=== PATIENT | female | born 1970 | race Caucasian/White ===

== ENCOUNTER 2017-07-26 13:55 | Emergency (ER) | payer OTHER, SELFPAY | END 2017-07-26 16:37 | disposition home or self-care (01) | PROVIDERS: Emergency Provider Emergency Medicine; Visit Provider Emergency Medicine | DX: F10.10 Alcohol abuse, uncomplicated (principal) | CPT/HCPCS: 80053; 80320; 85025; 85610; 85730; 99058; 99283 ==

== ENCOUNTER → 2018-05-22 15:51 | Outpatient (CLI) | payer SELFPAY ==
[2018-05-22 17:23] LABS: Add Manual Diff / Slide Review NO; Basophils Absolute Auto 100 /uL (0-100); Basophils Percent Auto 0.8 % (0-2); Eosinophils Absolute Auto 100 /uL (0-450); Eosinophils Percent Auto 1.6 % (2-4); Hematocrit 40.6 % (36-46); Hemoglobin 14.3 g/dL (12.0-16.0); Lymphocytes Absolute Auto 1800 /uL (1100-4500); Lymphocytes Percent Auto 23.8 % (25-40); Mean Corpuscular HGB Conc 35.2 % (30-36); Mean Corpuscular Hemoglobin 36.3 PG (26-34); Mean Corpuscular Volume 103.2 fL (80-100); Monocytes Absolute Auto 1200 /uL (0-900); Monocytes Percent Auto 16.8 % (3-14); Neutrophils Absolute Auto 4200 /uL (1500-7000); Platelet Count 167 X10^3/uL (150-400); Red Blood Cell Count 3.94 X10^6/uL (4.0-5.2); Red Cell Distribution Width 15.5 % (11.6-14.8); White Blood Cell Count 7.4 X10^3/uL (4.5-11.0)
[2018-05-22 17:57] LABS: Urine Amphetamines Negative (Negative); Urine Barbiturates Negative (Negative); Urine Benzodiazepines Negative (Negative); Urine Cocaine Negative (Negative); Urine MDMA Negative (Negative); Urine Methadone Negative (Negative); Urine Methamphetamines Negative (Negative); Urine Morphine/Opi cutoff 2000 Negative (Negative); Urine Oxycodone Negative (Negative); Urine Phencyclidine Negative (Negative); Urine Tetrahydrocannabinol Negative (Negative); Urine Tricyclic Antidepressant Negative (Negative)
[2018-05-22 18:09] LABS: Alanine Aminotransferase 89 IU/L (9-52); Albumin 4.6 g/dL (3.5-5.0); Albumin Globulin Ratio 1.5 (1.0-2.8); Alkaline Phosphatase 63 U/L (38-126); Aspartate Aminotransferase 53 IU/L (14-36); BUN Creatinine Ratio 14.3 (6-22); Bilirubin Total 0.7 mg/dL (0.2-1.3); Blood Urea Nitrogen 10 mg/dL (7-17); Calcium 9.9 mg/dL (8.4-10.2); Carbon Dioxide 21 mmol/L (22-32); Chloride 101 mmol/L (98-107); Estimated Glomerular Filt Rate > 60.0 mL/min (>60); Globulin 3.1 g/dL (1.7-4.1); Glucose 82 mg/dL (70-100); HEMOLYSIS < 15 (0-50); Potassium 4.1 mmol/L (3.4-5.1); Sodium 136 mmol/L (137-145); Total Protein 7.7 g/dL (6.3-8.2)
[2018-05-22 18:38] LABS: Thyroid Stimulating Hormone 1.06 uIU/mL (0.47-4.68)
== END ==
PROVIDERS: Visit Provider Psychiatry & Neurology Psychiatry
DX: F33.9 Major depressive disorder, recurrent, unspecified (principal); F43.10 Post-traumatic stress disorder, unspecified; F12.10 Cannabis abuse, uncomplicated; F10.20 Alcohol dependence, uncomplicated
CPT/HCPCS: 36415; 80053; 80305; 84443; 85025

== ENCOUNTER 2018-06-12 21:07 | Emergency (ER) | payer OTHER, MEDICAID, SELFPAY ==
[2018-06-12] VITALS (12 sets, daily range): BP systolic 73–131; BP diastolic 55–116; PULSE 67–86; RESP 12–20; TEMP 36.7; O2SAT 94–99; BMI 21.7
--- NOTE | 2018-06-12 21:13 | ED.GENADULT ---
HPI - General Adult General Chief complaint: Psychiatric Symptoms Stated complaint: Suicide Attempt Time Seen by Provider: 06/12/18 21:11 Source: patient and EMS Mode of arrival: EMS Limitations: no limitations History of Present Illness HPI narrative: patient is a 48-year-old female brought in by EMS. They were called by the family after the patient intentionally took her medication and an attempt to kill herself. Approximately 40 min prior to arrival the patient took approximately 30 pills of 0.1 mg clonidine, 20 pills of 1 mg or as a Dara, 30 pills of 25 mg Chlordiazepoxide, 51 1 mg Prazosin. she also admitted to drinking alcohol. The patient stated that she has never tried to kill herself in the past. She has done some cutting in the past but none of that now. She blames depression and other issues on why she did it. She is here in the hospital with her . Related Data Previous Rx's Medication Instructions Recorded fluconazole [Diflucan] 150 mg PO QDAY #1 tab 01/13/17 chlordiazepoxide HCl 25 mg PO SEE INSTRUCTIONS #30 cap 07/26/17 Allergies Allergy/AdvReac Type Severity Reaction Status Date / Time aspirin [ASPIRIN] AdvReac Severe RING IN Verified 06/12/18 21:52 EARS. ASPIRIN Allergy Severe RINGING IN Uncoded 06/12/18 21:52 EARS & TINGLING ALL OVER BODY Review of Systems Constitutional Reports fatigue and Denies headache(s) ENT Ears, Nose, Mouth, and Throat: Denies headache(s) and Reports disequilibrium Cardiovascular Denies chest pain and Denies dyspnea Respiratory Denies dyspnea Gastrointestinal Gastrointestinal: Denies abdominal pain, Denies nausea and Denies vomiting Genitourinary Denies dysuria Musculoskeletal Denies myalgias and Denies arthralgias Integumentary/Breasts Denies rash Neurologic Reports behavioral changes, Reports confusion, Denies headache(s) and Reports disequilibrium Psychiatric Reports behavioral changes, Reports confusion, Reports depression, Reports hopelessness, Denies homicidal ideation and Reports suicidal ideation Endocrine Reports fatigue Hematologic/Lymphatic Denies easy bleeding and Denies easy bruising PFSH Medical History Alcohol abuse (Acute) Anxiety (Acute) Social History Smoking Status: Current every day smoker Social History Smoking Status: Current every day smoker Exam Initial Vital Signs Initial Vital Signs: Vital Signs Temperature 98.1 F 06/12/18 21:10 Pulse Rate 86 06/12/18 21:10 Respiratory Rate 16 06/12/18 21:10 Blood Pressure 131/116 H 06/12/18 21:10 Pulse Oximetry 97 06/12/18 21:10 Const General: cooperative, well developed, well groomed and No acute distress Orientation: alert, awake and oriented x3 HENMT Head: normal to inspection and normocephalic Resp Effort & Inspection: normal respiratory effort Auscultation: clear to auscultation bilaterally Cardio Rate: regular rate Rhythm: regular rhythm Pulses: radial pulses present GI Inspection: non-distended Palpation: soft Skin Lesions: no lesions Rashes: no rashes Neuro General: alert, awake and oriented x3 Cognition: normal cognition Speech: other ( slurred speech) Extrem General: normal to inspection and capillary refill normal Psych Appearance: grossly normal and well kempt Course Orders Ordered: ED Orders 06/12/18 22:35 Test Urine Stat Urinalysis and Microscopic Stat Urine Drug Screen, Rapid Stat 06/13/18 05:55 Consult to Alterations Sewer Stat 06/13/18 06:20 Ethanol (ETOH) Stat Sodium Chloride (Normal Saline 0.9%) 1,000 mls @ 150 mls/hr IV CONT ANASTASIA Last Infusion: 06/13/18 04:25 Dose: 0 mls/hr Admin: 06/12/18 23:14 Dose: 150 mls/hr Discontinued Medications Sodium Chloride (Normal Saline 0.9%) 1,000 mls @ 1,000 mls/hr IV BOLUS ONE Stop: 06/12/18 22:18 Last Infusion: 06/12/18 22:51 Dose: 0 mls/hr Admin: 06/12/18 21:53 Dose: 1,000 mls/hr Sodium Chloride (Normal Saline 0.9%) 1,000 mls @ 1,000 mls/hr IV BOLUS ONE Stop: 06/12/18 23:37 Last Infusion: 06/12/18 23:13 Dose: 0 mls/hr Admin: 06/12/18 22:42 Dose: 1,000 mls/hr Sodium Chloride (Normal Saline 0.9%) 1,000 mls @ 500 mls/hr IV BOLUS ONE Stop: 06/13/18 06:04 Last Infusion: 06/13/18 06:40 Dose: 0 mls/hr Admin: 06/13/18 04:18 Dose: 500 mls/hr Vital Signs - 8 hr 06/12/18 23:30 06/12/18 23:45 06/13/18 00:00 Pulse Rate 72 67 66 Respiratory Rate 14 15 15 Blood Pressure [Left Arm] 85/62 L 84/62 L 82/66 L Pulse Oximetry 95 96 95 06/13/18 00:15 06/13/18 00:32 06/13/18 00:45 Pulse Rate 67 66 68 Respiratory Rate 14 15 14 Blood Pressure [Left Arm] 85/64 L 86/65 L 81/62 L Pulse Oximetry 95 95 94 06/13/18 01:00 06/13/18 01:15 06/13/18 01:30 Pulse Rate 68 66 74 Respiratory Rate 15 15 15 Blood Pressure [Left Arm] 87/61 L 86/63 L 83/63 L Pulse Oximetry 95 95 98 06/13/18 01:48 06/13/18 02:02 06/13/18 02:30 Pulse Rate 69 75 58 L Respiratory Rate 14 18 14 Blood Pressure [Left Arm] 89/60 L 84/63 L 92/66 Pulse Oximetry 97 97 97 06/13/18 03:15 06/13/18 03:30 06/13/18 04:00 Pulse Rate 58 L 59 L 69 Respiratory Rate 15 16 16 Blood Pressure [Left Arm] 97/73 93/70 76/61 L Pulse Oximetry 95 96 96 06/13/18 04:30 06/13/18 05:00 06/13/18 06:30 Pulse Rate 58 L 73 55 L Respiratory Rate 13 16 14 Blood Pressure [Left Arm] 89/68 L 99/66 85/58 L Pulse Oximetry 95 97 93 06/13/18 06:45 06/13/18 07:01 Pulse Rate 54 L 55 L Respiratory Rate 15 15 Blood Pressure [Left Arm] 95/56 L 89/64 L Pulse Oximetry 96 95 Medical Decision Making Lab Data Lab results reviewed: Yes I reviewed the patient's lab results. Result diagrams: 06/12/18 21:40 06/12/18 21:40 Lab Results 06/12/18 06/12/18 06/12/18 Range/Units 21:40 21:40 21:40 WBC 5.7 (4.5-11.0) X10^3/uL RBC 3.75 L (4.0-5.2) X10^6/uL Hgb 13.2 (12.0-16.0) g/dL Hct 37.7 (36-46) % MCV 100.4 H (80-100) fL MCH 35.2 H (26-34) PG MCHC 35.1 (30-36) % RDW 14.4 (11.6-14.8) % Plt Count 158 (150-400) X10^3/uL Neut % (Auto) 63.2 (50-75) % Lymph % (Auto) 28.3 (25-40) % [place] % (Auto) 6.5 (3-14) % Eos % (Auto) 1.2 L (2-4) % Baso % (Auto) 0.8 (0-2) % Neut # (Auto) 3600 (7877-8426) /uL Lymph # (Auto) 1600 (4490-7519) /uL [place] # (Auto) 400 (0-900) /uL Eos # (Auto) 100 (0-450) /uL Baso # (Auto) 0 (0-100) /uL Sodium 140 (137-145) mmol/L Potassium 3.6 (3.4-5.1) mmol/L Chloride 108 H (98-107) mmol/L Carbon Dioxide 19 L (22-32) mmol/L BUN 6 L (7-17) mg/dL Creatinine 0.60 (0.52-1.04) mg/dL Estimated GFR > 60.0 (>60) mL/min BUN/Creatinine Ratio 10.0 (6-22) Glucose 110 H (70-100) mg/dL Calcium 8.9 (8.4-10.2) mg/dL Total Bilirubin 0.1 L (0.2-1.3) mg/dL AST 19 (14-36) IU/L ALT 21 (9-52) IU/L Alkaline Phosphatase 42 (38-126) U/L Total Protein 7.1 (6.3-8.2) g/dL Albumin 4.2 (3.5-5.0) g/dL Globulin 2.9 (1.7-4.1) g/dL Albumin/Globulin Ratio 1.4 (1.0-2.8) Lipase 282 (23-300) U/L TSH 1.00 (0.47-4.68) uIU/mL Urine Color Urine Appearance Urine pH (4.5-8.0) Ur Specific [place] (1.000-1.035) Urine Protein (Negative) Urine Glucose (UA) (Negative) g/dL Urine Ketones (NEGATIVE) Urine Occult Blood (Negative) Urine Nitrate (Negative) Urine Bilirubin (NEGATIVE) Urine Urobilinogen (0.2) E.U./dL Ur Leukocyte Esterase (NEGATIVE) Urine RBC (0-5/HPF) Urine WBC (0-5/HPF) Urine Bacteria (None) Ur Culture Indicated? Urine Test (Negative) Salicylates < 1.0 (<20) mg/dL Urine Opiates Screen (Negative) Ur Oxycodone Screen (Negative) Urine Methadone Screen (Negative) Acetaminophen < 10 L (10-30) ug/mL Ur Barbiturates Screen (Negative) U Tricyclic Antidepress (Negative) Ur Phencyclidine Scrn (Negative) Ur Amphetamines Screen (Negative) U Methamphetamines Scrn (Negative) Ur MDMA Scrn (Ecstasy) (Negative) U Benzodiazepines Scrn (Negative) Urine Cocaine Screen (Negative) U Marijuana (THC) Screen (Negative) Ethyl Alcohol 167 mg/dL 06/12/18 06/12/18 06/12/18 Range/Units 22:35 22:35 22:35 WBC (4.5-11.0) X10^3/uL RBC (4.0-5.2) X10^6/uL Hgb (12.0-16.0) g/dL Hct (36-46) % MCV (80-100) fL MCH (26-34) PG MCHC (30-36) % RDW (11.6-14.8) % Plt Count (150-400) X10^3/uL Neut % (Auto) (50-75) % Lymph % (Auto) (25-40) % [place] % (Auto) (3-14) % Eos % (Auto) (2-4) % Baso % (Auto) (0-2) % Neut # (Auto) (5084-5673) /uL Lymph # (Auto) (2844-7090) /uL [place] # (Auto) (0-900) /uL Eos # (Auto) (0-450) /uL Baso # (Auto) (0-100) /uL Sodium (137-145) mmol/L Potassium (3.4-5.1) mmol/L Chloride (98-107) mmol/L Carbon Dioxide (22-32) mmol/L BUN (7-17) mg/dL Creatinine (0.52-1.04) mg/dL Estimated GFR (>60) mL/min BUN/Creatinine Ratio (6-22) Glucose (70-100) mg/dL Calcium (8.4-10.2) mg/dL Total Bilirubin (0.2-1.3) mg/dL AST (14-36) IU/L ALT (9-52) IU/L Alkaline Phosphatase (38-126) U/L Total Protein (6.3-8.2) g/dL Albumin (3.5-5.0) g/dL Globulin (1.7-4.1) g/dL Albumin/Globulin Ratio (1.0-2.8) Lipase (23-300) U/L TSH (0.47-4.68) uIU/mL Urine Color Yellow Urine Appearance Clear Urine pH 5.5 (4.5-8.0) Ur Specific [place] <=1.005 (1.000-1.035) Urine Protein Negative (Negative) Urine Glucose (UA) Negative (Negative) g/dL Urine Ketones Negative (NEGATIVE) Urine Occult Blood Trace-lysed (Negative) Urine Nitrate Negative (Negative) Urine Bilirubin Negative (NEGATIVE) Urine Urobilinogen 0.2 (0.2) E.U./dL Ur Leukocyte Esterase Negative (NEGATIVE) Urine RBC None seen (0-5/HPF) Urine WBC None seen (0-5/HPF) Urine Bacteria None seen (None) Ur Culture Indicated? Cult not indicated Urine Test Negative (Negative) Salicylates (<20) mg/dL Urine Opiates Screen Negative (Negative) Ur Oxycodone Screen Negative (Negative) Urine Methadone Screen Negative (Negative) Acetaminophen (10-30) ug/mL Ur Barbiturates Screen Negative (Negative) U Tricyclic Antidepress Negative (Negative) Ur Phencyclidine Scrn Negative (Negative) Ur Amphetamines Screen Negative (Negative) U Methamphetamines Scrn Negative (Negative) Ur MDMA Scrn (Ecstasy) Negative (Negative) U Benzodiazepines Scrn Positive H (Negative) Urine Cocaine Screen Negative (Negative) U Marijuana (THC) Screen Positive H (Negative) Ethyl Alcohol mg/dL 06/13/18 Range/Units 06:20 WBC (4.5-11.0) X10^3/uL RBC (4.0-5.2) X10^6/uL Hgb (12.0-16.0) g/dL Hct (36-46) % MCV (80-100) fL MCH (26-34) PG MCHC (30-36) % RDW (11.6-14.8) % Plt Count (150-400) X10^3/uL Neut % (Auto) (50-75) % Lymph % (Auto) (25-40) % [place] % (Auto) (3-14) % Eos % (Auto) (2-4) % Baso % (Auto) (0-2) % Neut # (Auto) (1214-2076) /uL Lymph # (Auto) (5033-5526) /uL [place] # (Auto) (0-900) /uL Eos # (Auto) (0-450) /uL Baso # (Auto) (0-100) /uL Sodium (137-145) mmol/L Potassium (3.4-5.1) mmol/L Chloride (98-107) mmol/L Carbon Dioxide (22-32) mmol/L BUN (7-17) mg/dL Creatinine (0.52-1.04) mg/dL Estimated GFR (>60) mL/min BUN/Creatinine Ratio (6-22) Glucose (70-100) mg/dL Calcium (8.4-10.2) mg/dL Total Bilirubin (0.2-1.3) mg/dL AST (14-36) IU/L ALT (9-52) IU/L Alkaline Phosphatase (38-126) U/L Total Protein (6.3-8.2) g/dL Albumin (3.5-5.0) g/dL Globulin (1.7-4.1) g/dL Albumin/Globulin Ratio (1.0-2.8) Lipase (23-300) U/L TSH (0.47-4.68) uIU/mL Urine Color Urine Appearance Urine pH (4.5-8.0) Ur Specific [place] (1.000-1.035) Urine Protein (Negative) Urine Glucose (UA) (Negative) g/dL Urine Ketones (NEGATIVE) Urine Occult Blood (Negative) Urine Nitrate (Negative) Urine Bilirubin (NEGATIVE) Urine Urobilinogen (0.2) E.U./dL Ur Leukocyte Esterase (NEGATIVE) Urine RBC (0-5/HPF) Urine WBC (0-5/HPF) Urine Bacteria (None) Ur Culture Indicated? Urine Test (Negative) Salicylates (<20) mg/dL Urine Opiates Screen (Negative) Ur Oxycodone Screen (Negative) Urine Methadone Screen (Negative) Acetaminophen (10-30) ug/mL Ur Barbiturates Screen (Negative) U Tricyclic Antidepress (Negative) Ur Phencyclidine Scrn (Negative) Ur Amphetamines Screen (Negative) U Methamphetamines Scrn (Negative) Ur MDMA Scrn (Ecstasy) (Negative) U Benzodiazepines Scrn (Negative) Urine Cocaine Screen (Negative) U Marijuana (THC) Screen (Negative) Ethyl Alcohol < 10 mg/dL MDM Narrative Medical decision making narrative: discussed the case with poison control upon arrival. They recommended the usual toxicologic workup. Their concern was for [employer] depression, respiratory depression, bradycardia, hypotension. they stated that the medications she took usually respond to fluid boluses and her treatment is supportive care. They stated that she could potentially need pressors if her blood pressure drops too low. They also recommended at least 8 hr of observation and potentially longer if her symptoms persist. Her alcohol level was elevated. Patient has been stable overnight. Care turned over to Dr. Jain at 0700. to follow up on repeat alcohol level and re-evaluation and disposition. Discharge Plan Departure Patient Disposition: Xfer Acute Care Hospital Prescriptions: No Action fluconazole [Diflucan] 150 MG tablet 150 mg PO QDAY Qty: 1 RF: 0 chlordiazepoxide HCl 25 MG capsule 25 mg PO SEE INSTRUCTIONS Qty: 30 RF: 0
[2018-06-12] MEDS: SODIUM CHLORIDE 0.9% 1,000 ML 1000 ML IV ×2 (21:53→22:42)
[2018-06-12 22:10] LABS: Add Manual Diff / Slide Review NO; Basophils Absolute Auto 0 /uL (0-100); Basophils Percent Auto 0.8 % (0-2); Eosinophils Absolute Auto 100 /uL (0-450); Eosinophils Percent Auto 1.2 % (2-4); Hematocrit 37.7 % (36-46); Hemoglobin 13.2 g/dL (12.0-16.0); Lymphocytes Absolute Auto 1600 /uL (1100-4500); Lymphocytes Percent Auto 28.3 % (25-40); Mean Corpuscular HGB Conc 35.1 % (30-36); Mean Corpuscular Hemoglobin 35.2 PG (26-34); Mean Corpuscular Volume 100.4 fL (80-100); Monocytes Absolute Auto 400 /uL (0-900); Monocytes Percent Auto 6.5 % (3-14); Neutrophils Absolute Auto 3600 /uL (1500-7000); Neutrophils Percent Auto 63.2 % (50-75); Platelet Count 158 X10^3/uL (150-400); Red Blood Cell Count 3.75 X10^6/uL (4.0-5.2); Red Cell Distribution Width 14.4 % (11.6-14.8); White Blood Cell Count 5.7 X10^3/uL (4.5-11.0)
[2018-06-12 22:11] LABS: Acetaminophen < 10 ug/mL (10-30); Alanine Aminotransferase 21 IU/L (9-52); Albumin 4.2 g/dL (3.5-5.0); Albumin Globulin Ratio 1.4 (1.0-2.8); Alkaline Phosphatase 42 U/L (38-126); Aspartate Aminotransferase 19 IU/L (14-36); Bilirubin Total 0.1 mg/dL (0.2-1.3); Blood Urea Nitrogen 6 mg/dL (7-17); Calcium 8.9 mg/dL (8.4-10.2); Carbon Dioxide 19 mmol/L (22-32); Chloride 108 mmol/L (98-107); Estimated Glomerular Filt Rate > 60.0 mL/min (>60); Ethanol (ETOH) 167 mg/dL; Globulin 2.9 g/dL (1.7-4.1); Glucose 110 mg/dL (70-100); HEMOLYSIS < 15 (0-50); Lipase 282 U/L (23-300); Potassium 3.6 mmol/L (3.4-5.1); Sodium 140 mmol/L (137-145); Total Protein 7.1 g/dL (6.3-8.2)
[2018-06-12 22:12] LABS: Salicylate < 1.0 mg/dL (<20)
[2018-06-12 22:48] LABS: Bacteria Urine None Seen; RBC Urine None Seen (0-5/HPF); WBC Urine None Seen (0-5/HPF)
[2018-06-12 22:50] LABS: Appearance Urine UA CLEAR; Bilirubin Urine UA NEGATIVE (NEGATIVE); Color Urine UA YELLOW; Glucose Urine UA NEGATIVE (Negative); Ketones Urine UA NEGATIVE (NEGATIVE); Leukocyte Esterase Urine UA NEGATIVE (NEGATIVE); Nitrite Urine UA NEGATIVE (Negative); Occult Blood Urine UA TRACE-LYSED (Negative); Protein Urine UA NEGATIVE (Negative); Specific Gravity Urine UA <=1.005 (1.000-1.035); Urobilinogen Urine UA 0.2 E.U./dL (0.2); pH Urine UA 5.5 (4.5-8.0)
[2018-06-12 22:57] LABS: Urine Amphetamines Negative (Negative); Urine Barbiturates Negative (Negative); Urine Cocaine Negative (Negative); Urine MDMA Negative (Negative); Urine Methamphetamines Negative (Negative); Urine Morphine/Opi cutoff 2000 Negative (Negative); Urine Phencyclidine Negative (Negative); Urine Tetrahydrocannabinol Positive (Negative)
[2018-06-12 22:58] LABS: Pregnancy Test Urine Negative (Negative); Urine Benzodiazepines Positive (Negative); Urine Methadone Negative (Negative); Urine Oxycodone Negative (Negative); Urine Tricyclic Antidepressant Negative (Negative)
[2018-06-12 23:00] LABS: Culture Indicated Urine Cult Not Indicated
[2018-06-12] MEDS: SODIUM CHLORIDE 0.9% 1,000 ML 150 ML IV (23:14)
--- NOTE | 2018-06-12 23:25 | PC.NURSE ---
pt has family and spouse at bedside
[2018-06-13] VITALS (28 sets, daily range): BP systolic 76–134; BP diastolic 56–78; PULSE 39–75; RESP 13–22; O2SAT 93–99
--- NOTE | 2018-06-13 00:27 | PC.NURSE ---
pt sleeping in bed, arouses easily when approached by staff
--- NOTE | 2018-06-13 01:12 | PC.NURSE ---
ED Psychiatric Symptoms assessment charted on 06/12/18 at 2310 was actually done by Johanny Prajapati RN. Charted under Danyelle Franco in error.
--- NOTE | 2018-06-13 02:06 | PC.NURSE ---
Patient place din Room 7 at this time as she is more stable and all unnecessary items are more able to be removed from this room. Family at bedside. Danyelle Galvan at bedside.
[2018-06-13] MEDS: SODIUM CHLORIDE 0.9% 1,000 ML 500 ML IV (04:18)
--- NOTE | 2018-06-13 06:23 | PC.NURSE ---
drawn by lab.
[2018-06-13 06:56] LABS: Ethanol (ETOH) < 10 mg/dL
--- NOTE | 2018-06-13 07:39 | PC.NURSE ---
Gave pt ice water and walked with her to the bathroom. Pt back in her room laying down in bed. Her is at her bedside.
--- NOTE | 2018-06-13 07:51 | PC.NURSE ---
Pt resting in on bed. is in room with pt.
--- NOTE | 2018-06-13 08:01 | PC.NURSE ---
Pt sitting up in bed talking with her in room.
--- NOTE | 2018-06-13 08:21 | PC.NURSE ---
called left message to HEMATOLOGY NURSE.
--- NOTE | 2018-06-13 08:22 | PC.NURSE ---
Pt sitting up in bed talking with .
--- NOTE | 2018-06-13 08:39 | PC.NURSE ---
Wheeled pt to bathroom. Pt back in her room with . Pt is not hungry and refused breakfast.
--- NOTE | 2018-06-13 08:48 | PC.NURSE ---
Pt sitting up in bed eating a banana. Pt's is in the room.
--- NOTE | 2018-06-13 09:00 | PC.NURSE ---
Pt resting in bed. is in room with her.
--- NOTE | 2018-06-13 09:09 | PC.NURSE ---
Report from Jen RN, pt resting with eyes closed returned to monitor and awaiting repeat EKG - RT aware. curtains to room 7 open red sign on door. patient on monitor and at BS
--- NOTE | 2018-06-13 09:19 | PC.NURSE ---
Pt laying line bed. in room.
--- NOTE | 2018-06-13 09:31 | PC.NURSE ---
Pt resting in bed. in room.
--- NOTE | 2018-06-13 09:49 | PC.NURSE ---
Wheeled pt to bathroom. Pt back in bed and her parents and in room.
--- NOTE | 2018-06-13 10:01 | PC.NURSE ---
pt laying in bed visiting with her parents.
--- NOTE | 2018-06-13 10:02 | PC.NURSE ---
0940 Pt. ambulates from bathroom. additional friends arrive to bedside. pt. remains calm and appropriate in behavior. is talking calmly with friends at present
--- NOTE | 2018-06-13 10:17 | PC.NURSE ---
pt resting on bed. Pt's parents an in room.
[2018-06-13] MEDS: MAG HYDROX/ALUM/SIMETH 30 ML UDC PO (10:29)
--- NOTE | 2018-06-13 10:33 | PC.NURSE ---
Pt relaxing in bed. Nurse in room with pt talking also pt's and parents in room.
--- NOTE | 2018-06-13 10:47 | PC.NURSE ---
pt upset because its taking too long. Pts nurse talked to pt and pt is back in bed relaxing.
--- NOTE | 2018-06-13 10:51 | PC.NURSE ---
JEANIE Paz arrives to BS now
--- NOTE | 2018-06-13 10:52 | PC.NURSE ---
1020 - patient increasingly frustrated because she wants to go home and/or outside to smoke and right now ED physician is refusing, awaiting JEANIE magdaleno. Pt. refuses nicotine patch offer
--- NOTE | 2018-06-13 11:01 | PC.NURSE ---
pt resting on bed talking with care management in the room.
--- NOTE | 2018-06-13 11:33 | PC.NURSE ---
pt relaxing in bed, family at bedside
--- NOTE | 2018-06-13 11:34 | PC.NURSE ---
pt laying in bed. Her parents and are in room with her.
--- NOTE | 2018-06-13 11:45 | PC.NURSE ---
Pt is resting on bed visiting with family in room.
--- NOTE | 2018-06-13 12:02 | PC.NURSE ---
Walked with pt to the restroom. Pt back in room laying down with family at bedside.
--- NOTE | 2018-06-13 12:09 | PC.NURSE ---
1150- SW finished with pt. resourses information provided for follow up. SW stressed importance of applying for [employer] [facility] and contacting [facility] team for further assistance. Pt. and family verbalized acceptance of care for pt. safety.
--- NOTE | 2018-06-13 12:17 | PC.NURSE ---
pt laying in bed. Family in room with pt.
--- NOTE | 2018-06-13 12:35 | PC.NURSE ---
Family in room with pt. Pt is laying on bed.
--- NOTE | 2018-06-13 12:48 | PC.NURSE ---
Pt sitting up in bed talking with family in room.
--- NOTE | 2018-06-13 13:02 | PC.NURSE ---
pt in bed relaxing, door closed and curtain open.
--- NOTE | 2018-06-13 13:08 | ED.PSYCH ---
HPI - Psych General Chief Complaint: Psychiatric Symptoms Stated Complaint: Suicide Attempt Time Seen by Provider: 06/12/18 21:11 Source: patient and EMS Mode of arrival: EMS Related Data Previous Rx's Medication Instructions Recorded fluconazole [Diflucan] 150 mg PO QDAY #1 tab 01/13/17 chlordiazepoxide HCl 25 mg PO SEE INSTRUCTIONS #30 cap 07/26/17 Allergies Allergy/AdvReac Type Severity Reaction Status Date / Time aspirin [ASPIRIN] AdvReac Severe RING IN Verified 06/12/18 21:52 EARS. ASPIRIN Allergy Severe RINGING IN Uncoded 06/12/18 21:52 EARS & TINGLING ALL OVER BODY Review of Systems Constitutional Denies headache(s) ENT Ears, Nose, Mouth, and Throat: Denies headache(s) and Reports disequilibrium Neurologic Reports behavioral changes, Reports confusion, Denies headache(s) and Reports disequilibrium Psychiatric Reports behavioral changes and Reports confusion PFSH Medical History Alcohol abuse (Acute) Anxiety (Acute) Social History Smoking Status: Current every day smoker Social History Smoking Status: Current every day smoker Exam Initial Vital Signs Initial Vital Signs: Vital Signs Temperature 98.1 F 06/12/18 21:10 Pulse Rate 86 06/12/18 21:10 Respiratory Rate 16 06/12/18 21:10 Blood Pressure 131/116 H 06/12/18 21:10 Pulse Oximetry 97 06/12/18 21:10 Course Orders Ordered: Discontinued Medications Al Hydrox/Mg Hydrox/Simethicone (Maalox Plus) 30 ml PO NOW ONE Stop: 06/13/18 09:25 Last Admin: 06/13/18 10:29 Dose: 30 ml Sodium Chloride (Normal Saline 0.9%) 1,000 mls @ 1,000 mls/hr IV BOLUS ONE Stop: 06/12/18 22:18 Last Infusion: 06/12/18 22:51 Dose: 0 mls/hr Admin: 06/12/18 21:53 Dose: 1,000 mls/hr Sodium Chloride (Normal Saline 0.9%) 1,000 mls @ 150 mls/hr IV CONT ANASTASIA Last Infusion: 06/13/18 04:25 Dose: 0 mls/hr Admin: 06/12/18 23:14 Dose: 150 mls/hr Sodium Chloride (Normal Saline 0.9%) 1,000 mls @ 1,000 mls/hr IV BOLUS ONE Stop: 06/12/18 23:37 Last Infusion: 06/12/18 23:13 Dose: 0 mls/hr Admin: 06/12/18 22:42 Dose: 1,000 mls/hr Sodium Chloride (Normal Saline 0.9%) 1,000 mls @ 500 mls/hr IV BOLUS ONE Stop: 06/13/18 06:04 Last Infusion: 06/13/18 06:40 Dose: 0 mls/hr Admin: 06/13/18 04:18 Dose: 500 mls/hr Vital Signs - 8 hr 06/13/18 13:06 06/13/18 13:08 06/13/18 13:30 Pulse Rate 39 L 40 L 48 L Respiratory Rate 17 17 13 Blood Pressure [Left Arm] 110/76 127/69 106/71 Pulse Oximetry 97 99 99 MDM - Psych Lab Data Attestation: I reviewed the patient's lab results. Result diagrams: 06/12/18 21:40 06/12/18 21:40 Lab Results 06/12/18 06/12/18 06/12/18 Range/Units 21:40 21:40 21:40 WBC 5.7 (4.5-11.0) X10^3/uL RBC 3.75 L (4.0-5.2) X10^6/uL Hgb 13.2 (12.0-16.0) g/dL Hct 37.7 (36-46) % MCV 100.4 H (80-100) fL MCH 35.2 H (26-34) PG MCHC 35.1 (30-36) % RDW 14.4 (11.6-14.8) % Plt Count 158 (150-400) X10^3/uL Neut % (Auto) 63.2 (50-75) % Lymph % (Auto) 28.3 (25-40) % [place] % (Auto) 6.5 (3-14) % Eos % (Auto) 1.2 L (2-4) % Baso % (Auto) 0.8 (0-2) % Neut # (Auto) 3600 (2854-9026) /uL Lymph # (Auto) 1600 (7565-1256) /uL [place] # (Auto) 400 (0-900) /uL Eos # (Auto) 100 (0-450) /uL Baso # (Auto) 0 (0-100) /uL Sodium 140 (137-145) mmol/L Potassium 3.6 (3.4-5.1) mmol/L Chloride 108 H (98-107) mmol/L Carbon Dioxide 19 L (22-32) mmol/L BUN 6 L (7-17) mg/dL Creatinine 0.60 (0.52-1.04) mg/dL Estimated GFR > 60.0 (>60) mL/min BUN/Creatinine Ratio 10.0 (6-22) Glucose 110 H (70-100) mg/dL Calcium 8.9 (8.4-10.2) mg/dL Total Bilirubin 0.1 L (0.2-1.3) mg/dL AST 19 (14-36) IU/L ALT 21 (9-52) IU/L Alkaline Phosphatase 42 (38-126) U/L Total Protein 7.1 (6.3-8.2) g/dL Albumin 4.2 (3.5-5.0) g/dL Globulin 2.9 (1.7-4.1) g/dL Albumin/Globulin Ratio 1.4 (1.0-2.8) Lipase 282 (23-300) U/L TSH 1.00 (0.47-4.68) uIU/mL Urine Color Urine Appearance Urine pH (4.5-8.0) Ur Specific [place] (1.000-1.035) Urine Protein (Negative) Urine Glucose (UA) (Negative) g/dL Urine Ketones (NEGATIVE) Urine Occult Blood (Negative) Urine Nitrate (Negative) Urine Bilirubin (NEGATIVE) Urine Urobilinogen (0.2) E.U./dL Ur Leukocyte Esterase (NEGATIVE) Urine RBC (0-5/HPF) Urine WBC (0-5/HPF) Urine Bacteria (None) Ur Culture Indicated? Urine Test (Negative) Salicylates < 1.0 (<20) mg/dL Urine Opiates Screen (Negative) Ur Oxycodone Screen (Negative) Urine Methadone Screen (Negative) Acetaminophen < 10 L (10-30) ug/mL Ur Barbiturates Screen (Negative) U Tricyclic Antidepress (Negative) Ur Phencyclidine Scrn (Negative) Ur Amphetamines Screen (Negative) U Methamphetamines Scrn (Negative) Ur MDMA Scrn (Ecstasy) (Negative) U Benzodiazepines Scrn (Negative) Urine Cocaine Screen (Negative) U Marijuana (THC) Screen (Negative) Ethyl Alcohol 167 mg/dL 06/12/18 06/12/18 06/12/18 Range/Units 22:35 22:35 22:35 WBC (4.5-11.0) X10^3/uL RBC (4.0-5.2) X10^6/uL Hgb (12.0-16.0) g/dL Hct (36-46) % MCV (80-100) fL MCH (26-34) PG MCHC (30-36) % RDW (11.6-14.8) % Plt Count (150-400) X10^3/uL Neut % (Auto) (50-75) % Lymph % (Auto) (25-40) % [place] % (Auto) (3-14) % Eos % (Auto) (2-4) % Baso % (Auto) (0-2) % Neut # (Auto) (6601-1414) /uL Lymph # (Auto) (1417-6049) /uL [place] # (Auto) (0-900) /uL Eos # (Auto) (0-450) /uL Baso # (Auto) (0-100) /uL Sodium (137-145) mmol/L Potassium (3.4-5.1) mmol/L Chloride (98-107) mmol/L Carbon Dioxide (22-32) mmol/L BUN (7-17) mg/dL Creatinine (0.52-1.04) mg/dL Estimated GFR (>60) mL/min BUN/Creatinine Ratio (6-22) Glucose (70-100) mg/dL Calcium (8.4-10.2) mg/dL Total Bilirubin (0.2-1.3) mg/dL AST (14-36) IU/L ALT (9-52) IU/L Alkaline Phosphatase (38-126) U/L Total Protein (6.3-8.2) g/dL Albumin (3.5-5.0) g/dL Globulin (1.7-4.1) g/dL Albumin/Globulin Ratio (1.0-2.8) Lipase (23-300) U/L TSH (0.47-4.68) uIU/mL Urine Color Yellow Urine Appearance Clear Urine pH 5.5 (4.5-8.0) Ur Specific [place] <=1.005 (1.000-1.035) Urine Protein Negative (Negative) Urine Glucose (UA) Negative (Negative) g/dL Urine Ketones Negative (NEGATIVE) Urine Occult Blood Trace-lysed (Negative) Urine Nitrate Negative (Negative) Urine Bilirubin Negative (NEGATIVE) Urine Urobilinogen 0.2 (0.2) E.U./dL Ur Leukocyte Esterase Negative (NEGATIVE) Urine RBC None seen (0-5/HPF) Urine WBC None seen (0-5/HPF) Urine Bacteria None seen (None) Ur Culture Indicated? Cult not indicated Urine Test Negative (Negative) Salicylates (<20) mg/dL Urine Opiates Screen Negative (Negative) Ur Oxycodone Screen Negative (Negative) Urine Methadone Screen Negative (Negative) Acetaminophen (10-30) ug/mL Ur Barbiturates Screen Negative (Negative) U Tricyclic Antidepress Negative (Negative) Ur Phencyclidine Scrn Negative (Negative) Ur Amphetamines Screen Negative (Negative) U Methamphetamines Scrn Negative (Negative) Ur MDMA Scrn (Ecstasy) Negative (Negative) U Benzodiazepines Scrn Positive H (Negative) Urine Cocaine Screen Negative (Negative) U Marijuana (THC) Screen Positive H (Negative) Ethyl Alcohol mg/dL 06/13/18 Range/Units 06:20 WBC (4.5-11.0) X10^3/uL RBC (4.0-5.2) X10^6/uL Hgb (12.0-16.0) g/dL Hct (36-46) % MCV (80-100) fL MCH (26-34) PG MCHC (30-36) % RDW (11.6-14.8) % Plt Count (150-400) X10^3/uL Neut % (Auto) (50-75) % Lymph % (Auto) (25-40) % [place] % (Auto) (3-14) % Eos % (Auto) (2-4) % Baso % (Auto) (0-2) % Neut # (Auto) (8225-8042) /uL Lymph # (Auto) (0088-9538) /uL [place] # (Auto) (0-900) /uL Eos # (Auto) (0-450) /uL Baso # (Auto) (0-100) /uL Sodium (137-145) mmol/L Potassium (3.4-5.1) mmol/L Chloride (98-107) mmol/L Carbon Dioxide (22-32) mmol/L BUN (7-17) mg/dL Creatinine (0.52-1.04) mg/dL Estimated GFR (>60) mL/min BUN/Creatinine Ratio (6-22) Glucose (70-100) mg/dL Calcium (8.4-10.2) mg/dL Total Bilirubin (0.2-1.3) mg/dL AST (14-36) IU/L ALT (9-52) IU/L Alkaline Phosphatase (38-126) U/L Total Protein (6.3-8.2) g/dL Albumin (3.5-5.0) g/dL Globulin (1.7-4.1) g/dL Albumin/Globulin Ratio (1.0-2.8) Lipase (23-300) U/L TSH (0.47-4.68) uIU/mL Urine Color Urine Appearance Urine pH (4.5-8.0) Ur Specific [place] (1.000-1.035) Urine Protein (Negative) Urine Glucose (UA) (Negative) g/dL Urine Ketones (NEGATIVE) Urine Occult Blood (Negative) Urine Nitrate (Negative) Urine Bilirubin (NEGATIVE) Urine Urobilinogen (0.2) E.U./dL Ur Leukocyte Esterase (NEGATIVE) Urine RBC (0-5/HPF) Urine WBC (0-5/HPF) Urine Bacteria (None) Ur Culture Indicated? Urine Test (Negative) Salicylates (<20) mg/dL Urine Opiates Screen (Negative) Ur Oxycodone Screen (Negative) Urine Methadone Screen (Negative) Acetaminophen (10-30) ug/mL Ur Barbiturates Screen (Negative) U Tricyclic Antidepress (Negative) Ur Phencyclidine Scrn (Negative) Ur Amphetamines Screen (Negative) U Methamphetamines Scrn (Negative) Ur MDMA Scrn (Ecstasy) (Negative) U Benzodiazepines Scrn (Negative) Urine Cocaine Screen (Negative) U Marijuana (THC) Screen (Negative) Ethyl Alcohol < 10 mg/dL Discharge Plan Departure Patient Disposition: Home Clinical Impression: Intentional overdose of drug in tablet form, Alcohol abuse Discharge Date/Time: 06/13/18 13:54 Interventions: ED Discharge Assessment Last Done: 06/13/18 13:53 Instructions: DI for Drug Overdose in Adults Activity Restrictions/Additional Instructions: Follow-up tomorrow with the [facility] team. Call for a follow-up appointment this afternoon. Social Work did verify that they will follow up with you. You may take ibuprofen or Tylenol for any headaches, do not take any prescription medications until cleared by your physician or psychiatrist. Called to set up follow-up with her psychiatrist this week. You may return at any time if you are having any thoughts of harming herself or others, feel that your suicidal and needed intervention, if you feel you are having worsening depression, he feels lightheaded, feels like you are going to pass out, chest pain, shortness of breath, swelling in your lower extremities or other new or concerning symptoms. If you're feeling suicidal or having suicidal thoughts, contact the suicide hotline (this is also the resource number for the [facility] team) . Prescriptions: No Action fluconazole [Diflucan] 150 MG tablet 150 mg PO QDAY Qty: 1 RF: 0 chlordiazepoxide HCl 25 MG capsule 25 mg PO SEE INSTRUCTIONS Qty: 30 RF: 0
--- NOTE | 2018-06-13 13:08 | PC.NURSE ---
pt. returns from [facility] - amb without assistance. Pt. walks much stronger. Stopped midway to BR to adjust sock and remained balanced throughout adjustment. calm and cooperative but adamant about her desire to go home with family. refuses any offers of assistance with detox or psych care.
--- NOTE | 2018-06-13 13:18 | PC.NURSE ---
Pt sitting up in bed. Door is closed and curtain is open.
--- NOTE | 2018-06-13 13:30 | PC.NURSE ---
Pt sitting up in bed. Pt's parents and her are in room with her.
--- NOTE | 2018-06-13 14:27 | CM.SWNOTE ---
Social Work Assessment ED Crisis Response Assessment Start: 06/13/18 14:12 Freq: Status: Active Protocol: Document 06/13/18 14:12 MARIAH (Rec: 06/13/18 14:27 MARIAH [id number]) ED Crisis Response Assessment DEPORTATION OFFICER Assessment Type Risk of Suicide Attempted Suicide Mental Health Substance Abuse Reason for DEPORTATION OFFICER Referral 48 yo brought in by PD after intentional overdose with alcohol and multiple different pills. Referred by Nancy Jain Presenting Problem Sober now, Radha ready medically for DC, provider has asked for social work input re: safety to [place] ER home w/ spouse and family, outpt plan. Radha wants to go home, wants a cigarette and refuses the patch. Mental health diagnosis PMH states Anxiety, no other known MH diagnosis VOA/CMS check Yes: No MIS, called to see if [facility] can respond w/no insurance Suicidal thoughts No: No current Past Suicidal thoughts Yes Current Suicidal thoughts No Prior Suicide attempts No Current plan for self harm No Access to guns and weapons No Thoughts of harm to others No Past thoughts of harm to others No Current thoughts of harming others No Prior attempts to harm others No Current plan to harm others No Current Risk factors Recent job loss Substance abuse Risk factor comments Radha recently quit her job. She has no insurance, her works from home. She drinks throughout the day admitting to 10-15 glasses of wine daily. She can not remember when she had her last drink. Crisis Plan Home w/spouse, 28/10 supervision for at least 48 hrs, parents local and also involved in Radha's safety plan. Call Psychiatrist Dr Tony Fonseca P# [phone]. Call [facility] team to request MH stabilization as needed and request next day appt at [facility] as needed. Radha, spouse Frank and family all in agreement to this plan. Radha eager to leave and smoke. Radha denies current suicidal ideation or plan for addtl. suicidal attempt. Resources Provided [facility], follow up with your psychiatrist, complete [place] [employer] Application so you have Medicaid and experience less barrier to services (family report barriers). Psychiatrist is paid privately (?) Action taken Sent home: family/friends Sent home w/ safety plan Additional Comment In addition: No prior h/o CD/ MH treatment, sees psychiatrist for med management x1 monthly. Radha says she has detoxed at home but has not stayed sober for long. Admits change in medication by Psychiatrist Dr Fonseca might have contributed to feelings of hopelessness before intentional overdose. Reviewed all above w/RN Susannah who will update Dr Jain. Radha eager to leave, and will not meet criteria to be detained at this time. Outpt plan coordinated and agreed upon. Family to call 911 or bring Radha back to the ER if they feel she is not safe at home. RADHA Crews
== END 2018-06-13 13:54 | disposition home or self-care (01) ==
PROVIDERS: Emergency Medicine; Emergency Provider Emergency Medicine
DX: T46.5X2A Poisoning by other antihypertensive drugs, intentional self-harm, initial encounter (principal); F10.10 Alcohol abuse, uncomplicated
CPT/HCPCS: 36415; 36591; 80053; 80305; 80320; 80329; 81001; 81025; 83690; 84443; 85025; 93005; 93010; 96360; 96361; 99285; G0480

== ENCOUNTER 2018-06-13 17:16 | Emergency (ER) | payer SELFPAY ==
[2018-06-13 17:21] VITALS: BP 159/79; PULSE 59; RESP 18; TEMP 37.7; O2SAT 99
[2018-06-13 19:30] LABS: Urine Tetrahydrocannabinol Positive (Negative)
[2018-06-13 19:31] LABS: Urine Cocaine Negative (Negative)
[2018-06-13 19:32] LABS: Urine Amphetamines Negative (Negative); Urine Barbiturates Negative (Negative); Urine Benzodiazepines Positive (Negative); Urine MDMA Negative (Negative); Urine Methadone Negative (Negative); Urine Methamphetamines Negative (Negative); Urine Morphine/Opi cutoff 2000 Negative (Negative); Urine Oxycodone Negative (Negative); Urine Phencyclidine Negative (Negative); Urine Tricyclic Antidepressant Negative (Negative)
[2018-06-13 19:54] LABS: Appearance Urine UA CLEAR; Bilirubin Urine UA NEGATIVE (NEGATIVE); Color Urine UA YELLOW; Glucose Urine UA NEGATIVE (Negative); Ketones Urine UA NEGATIVE (NEGATIVE); Leukocyte Esterase Urine UA NEGATIVE (NEGATIVE); Nitrite Urine UA NEGATIVE (Negative); Occult Blood Urine UA 1+ (Negative); Protein Urine UA NEGATIVE (Negative); Urobilinogen Urine UA 0.2 E.U./dL (0.2); pH Urine UA 5.5 (4.5-8.0)
[2018-06-13 19:56] LABS: Add Manual Diff / Slide Review NO; Basophils Absolute Auto 0 /uL (0-100); Basophils Percent Auto 0.4 % (0-2); Eosinophils Absolute Auto 100 /uL (0-450); Eosinophils Percent Auto 1.2 % (2-4); Hematocrit 36.4 % (36-46); Hemoglobin 12.5 g/dL (12.0-16.0); Lymphocytes Absolute Auto 1800 /uL (1100-4500); Lymphocytes Percent Auto 21.1 % (25-40); Mean Corpuscular HGB Conc 34.2 % (30-36); Mean Corpuscular Hemoglobin 34.6 PG (26-34); Mean Corpuscular Volume 101.2 fL (80-100); Monocytes Absolute Auto 500 /uL (0-900); Monocytes Percent Auto 5.6 % (3-14); Neutrophils Absolute Auto 6100 /uL (1500-7000); Neutrophils Percent Auto 71.7 % (50-75); Platelet Count 129 X10^3/uL (150-400); Red Cell Distribution Width 14.8 % (11.6-14.8); White Blood Cell Count 8.5 X10^3/uL (4.5-11.0)
[2018-06-13 19:57] LABS: Acetaminophen < 10 ug/mL (10-30); Alanine Aminotransferase 40 IU/L (9-52); Albumin 3.8 g/dL (3.5-5.0); Albumin Globulin Ratio 1.3 (1.0-2.8); Alkaline Phosphatase 44 U/L (38-126); Aspartate Aminotransferase 44 IU/L (14-36); Bilirubin Total 0.9 mg/dL (0.2-1.3); Bilirubin Unconjugated 0.5 mg/dL (0.0-1.1); Blood Urea Nitrogen 5 mg/dL (7-17); Calcium 9.1 mg/dL (8.4-10.2); Carbon Dioxide 18 mmol/L (22-32); Chloride 112 mmol/L (98-107); Estimated Glomerular Filt Rate > 60.0 mL/min (>60); Ethanol (ETOH) < 10 mg/dL; Globulin 2.9 g/dL (1.7-4.1); Glucose 91 mg/dL (70-100); Potassium 3.6 mmol/L (3.4-5.1); Sodium 138 mmol/L (137-145); Total Protein 6.7 g/dL (6.3-8.2)
[2018-06-13 19:59] LABS: HEMOLYSIS 60 (0-50); Salicylate < 1.0 mg/dL (<20)
[2018-06-13] MEDS: SODIUM CHLORIDE 0.9% 1,000 ML 1000 ML IV (19:59)
[2018-06-13] MEDS: ONDANSETRON 4 MG/2 ML INJ IV (19:59)
[2018-06-13] MEDS: LORazepam 2 MG/ML SYRINGE IV ×2 (20:00→21:09)
--- NOTE | 2018-06-13 20:08 | ED.ALCOHOL ---
HPI - Alcohol General Chief Complaint: Toxicology Problem Stated Complaint: States Alcohol withdrawl symptoms Time Seen by Provider: 06/13/18 18:17 Source: patient and family Mode of arrival: ambulatory Limitations: no limitations History of Present Illness HPI narrative: A 48-year-old female with extensive history of alcohol abuse, upwards of 10-15 averages daily presents with her in the chief complaint of withdrawal type symptoms. Her last drink was about 24 hr ago and she feels a mild headache some agitation has a resting tremor and feels nauseated. She has been through withdrawals before but never has ceased. She presented to the emergency department last evening after an intentional overdose of multiple medications (please see note from last visit for these details) patient was here for an extensive stay and was medically cleared earlier today. Patient was seen and evaluated by social work and had reach out to psychiatrist as well as the [facility] team. Patient very adamantly denies any ongoing suicidal ideation. She wishes to gain help with her detoxification from alcohol and states she has never been to a detox facility before. She states she made multiple calls today but struck out MD complaint: alcohol withdrawal Last drink: hours (ago) Chronic alcohol use: Yes Previous visits for alcohol intoxication: No Recent trauma: No Treatments prior to arrival: none Related Data Previous Rx's Medication Instructions Recorded fluconazole [Diflucan] 150 mg PO QDAY #1 tab 01/13/17 chlordiazepoxide HCl 25 mg PO SEE INSTRUCTIONS #30 cap 07/26/17 lorazepam [Ativan] See Rx Instructions .ROUTE 06/13/18 .COMPLEX PRN #19 tab ondansetron 4 mg PO TID-QID PRN #10 tab 06/13/18 Allergies Allergy/AdvReac Type Severity Reaction Status Date / Time aspirin [ASPIRIN] AdvReac Severe RING IN Verified 06/12/18 21:52 EARS. ASPIRIN Allergy Severe RINGING IN Uncoded 06/12/18 21:52 EARS & TINGLING ALL OVER BODY Review of Systems Constitutional Denies chills, Reports fatigue, Denies fever(s), Denies lethargy and Denies weakness Eyes Denies change in vision, Denies eye discharge, Denies irritation and Denies loss of vision ENT Ears, Nose, Mouth, and Throat: Denies change in voice, Denies neck pain and Denies sore throat Cardiovascular Denies chest pain, Reports irregular heart rhythm, Reports lightheadedness, Reports palpitations, Denies dyspnea, Denies dyspnea on exertion and Denies orthopnea Respiratory Denies cough, Denies dyspnea, Denies dyspnea on exertion and Denies wheezing Gastrointestinal Gastrointestinal: Denies abdominal pain, Denies change in bowel habits, Denies diarrhea, Denies nausea and Denies vomiting Genitourinary Denies hematuria, Denies flank pain, Denies urinary incontinence and Denies urinary urgency Musculoskeletal Denies neck pain Integumentary/Breasts Denies pruritus, Denies erythema, Denies rash and Denies wounds Neurologic Reports confusion, Denies loss of vision and Denies weakness Comments: tremor Psychiatric Denies anxiety, Reports confusion, Denies depression, Denies homicidal ideation and Denies suicidal ideation Endocrine Reports fatigue and Reports palpitations Hematologic/Lymphatic Denies easy bruising Allergic/Immunologic Denies wheezing [facility] Medical History Alcohol abuse (Acute) Anxiety (Acute) Social History Smoking Status: Current every day smoker Social History Smoking Status: Current every day smoker Exam Narrative Exam Narrative: GENERAL: 48-year-old female appears older than stated age, she is a obviously a bit agitated with a resting tremor HEAD: Atraumatic. Normocephalic. No temporal or scalp tenderness. EYES: Pupils equal round and reactive. Extraocular motions intact. No scleral icterus. No injection or drainage. ENT: Nose without bleeding, purulent drainage or septal hematoma. Throat without erythema, tonsillar hypertrophy or exudate. Uvula midline. Airway patent. NECK: Trachea midline. No JVD or lymphadenopathy. Supple, nontender, no meningeal signs. CARDIOVASCULAR: Regular rate and rhythm without murmurs, gallops, or rubs. RESPIRATORY: Clear to auscultation. Breath sounds equal bilaterally. No wheezes, rales, or rhonchi. GASTROINTESTINAL: Abdomen soft, non-tender, nondistended. No hepato-splenomegaly, or palpable masses. No guarding. EXTREMITIES: No clubbing, cyanosis, or edema. No joint tenderness, effusion, or edema noted. BACK: Nontender without deformity or crepitance. No flank tenderness. NEURO: AOx3. Mild resting tremor SKIN: No rash or erythema. Initial Vital Signs Initial Vital Signs: Vital Signs Temperature 99.9 F H 06/13/18 17:21 Pulse Rate 59 L 06/13/18 17:21 Respiratory Rate 18 06/13/18 17:21 Blood Pressure 159/79 H 06/13/18 17:21 Pulse Oximetry 99 06/13/18 17:21 Course Orders Ordered: ED Orders 06/13/18 19:10 Urinalysis Sreen (Dip Only) Stat Urine Drug Screen, Rapid Stat 06/13/18 19:35 Acetaminophen Stat Complete Blood Count AUTO DIFF Stat Comprehensive Metabolic Panel Stat Ethanol (ETOH) Stat Hepatic (Liver) Panel Stat Salicylate Stat 06/13/18 19:50 Lactate (Lactic Acid) Stat Discontinued Medications Sodium Chloride (Normal Saline 0.9%) 1,000 mls @ 1,000 mls/hr IV BOLUS ONE Stop: 06/13/18 19:37 Last Admin: 06/13/18 19:59 Dose: 1,000 mls/hr Lorazepam (Ativan) 2 mg IV NOW ONE Stop: 06/13/18 18:39 Last Admin: 06/13/18 20:00 Dose: 2 mg Lorazepam (Ativan) 2 mg IV NOW ONE Stop: 06/13/18 20:45 Last Admin: 06/13/18 21:09 Dose: 2 mg Lorazepam (Ativan) 2 mg PO NOW ONE Stop: 06/13/18 20:45 Last Admin: 06/13/18 21:09 Dose: 2 mg Ondansetron HCl (Zofran) 4 mg IV NOW ONE Stop: 06/13/18 18:39 Last Admin: 06/13/18 19:59 Dose: 4 mg Reevaluation(s) Reevaluation #1: Tru for Alcohol Withdrawal from [email or web address] on 06/13/2018 All calculations should be rechecked by clinician prior to use RESULT SUMMARY: 10 points Patients with scores ?9 may require medication for withdrawal. INPUTS: Nausea/vomiting ?> 2 = (More severe symptoms) Tremor ?> 4 = Moderate, with patient's arms extended Paroxysmal sweats ?> 0 = No sweat visible Anxiety ?> 1 = Mildly anxious Agitation ?> 1 = Somewhat more activity than normal activty Tactile disturbances ?> 0 = None Auditory disturbances ?> 0 = Not present Visual disturbances ?> 0 = Not present Headache/fullness in head ?> 2 = Mild Orientation/clouding of sensorium ?> 0 = Oriented, can do serial additions Reevaluation #2: Patient denies any ongoing suicidal ideation. I have talked with Mom to [facility] and they assure me the [facility] will contact this patient tonight Reevaluation #3: [facility] called patient just as she was being discharged Vital Signs - 8 hr 06/13/18 17:21 06/13/18 20:20 06/13/18 20:30 Temperature 99.9 F H Pulse Rate 59 L 50 L 85 Respiratory Rate 18 17 16 Blood Pressure 159/79 H Blood Pressure [Left Arm] 129/67 112/65 Pulse Oximetry 99 99 30 L 06/13/18 21:10 06/13/18 21:39 Temperature Pulse Rate 60 88 Respiratory Rate 17 17 Blood Pressure Blood Pressure [Left Arm] 112/65 130/77 Pulse Oximetry 99 99 MDM - Alcohol Lab Data Result diagrams: 06/13/18 19:35 06/13/18 19:35 Labs: Lab Results 06/13/18 06/13/18 06/13/18 Range/Units 19:10 19:10 19:35 WBC 8.5 (4.5-11.0) X10^3/uL RBC 3.60 L (4.0-5.2) X10^6/uL Hgb 12.5 (12.0-16.0) g/dL Hct 36.4 (36-46) % MCV 101.2 H (80-100) fL MCH 34.6 H (26-34) PG MCHC 34.2 (30-36) % RDW 14.8 (11.6-14.8) % Plt Count 129 L (150-400) X10^3/uL Neut % (Auto) 71.7 (50-75) % Lymph % (Auto) 21.1 L (25-40) % [place] % (Auto) 5.6 (3-14) % Eos % (Auto) 1.2 L (2-4) % Baso % (Auto) 0.4 (0-2) % Neut # (Auto) 6100 (8010-8106) /uL Lymph # (Auto) 1800 (5950-2313) /uL [place] # (Auto) 500 (0-900) /uL Eos # (Auto) 100 (0-450) /uL Baso # (Auto) 0 (0-100) /uL Sodium (137-145) mmol/L Potassium (3.4-5.1) mmol/L Chloride (98-107) mmol/L Carbon Dioxide (22-32) mmol/L BUN (7-17) mg/dL Creatinine (0.52-1.04) mg/dL Estimated GFR (>60) mL/min BUN/Creatinine Ratio (6-22) Glucose (70-100) mg/dL Lactate (0.7-2.1) mmol/L Calcium (8.4-10.2) mg/dL Total Bilirubin (0.2-1.3) mg/dL Conjugated Bilirubin (0.0-0.3) md/dL Unconjugated Bilirubin (0.0-1.1) mg/dL AST (14-36) IU/L ALT (9-52) IU/L Alkaline Phosphatase (38-126) U/L Total Protein (6.3-8.2) g/dL Albumin (3.5-5.0) g/dL Globulin (1.7-4.1) g/dL Albumin/Globulin Ratio (1.0-2.8) Urine Color Yellow Urine Appearance Clear Urine pH 5.5 (4.5-8.0) Ur Specific [place] 1.010 (1.000-1.035) Urine Protein Negative (Negative) Urine Glucose (UA) Negative (Negative) g/dL Urine Ketones Negative (NEGATIVE) Urine Occult Blood 1+ H (Negative) Urine Nitrate Negative (Negative) Urine Bilirubin Negative (NEGATIVE) Urine Urobilinogen 0.2 (0.2) E.U./dL Ur Leukocyte Esterase Negative (NEGATIVE) Salicylates (<20) mg/dL Urine Opiates Screen Negative (Negative) Ur Oxycodone Screen Negative (Negative) Urine Methadone Screen Negative (Negative) Acetaminophen (10-30) ug/mL Ur Barbiturates Screen Negative (Negative) U Tricyclic Antidepress Negative (Negative) Ur Phencyclidine Scrn Negative (Negative) Ur Amphetamines Screen Negative (Negative) U Methamphetamines Scrn Negative (Negative) Ur MDMA Scrn (Ecstasy) Negative (Negative) U Benzodiazepines Scrn Positive H (Negative) Urine Cocaine Screen Negative (Negative) U Marijuana (THC) Screen Positive H (Negative) Ethyl Alcohol mg/dL 06/13/18 06/13/18 Range/Units 19:35 19:50 WBC (4.5-11.0) X10^3/uL RBC (4.0-5.2) X10^6/uL Hgb (12.0-16.0) g/dL Hct (36-46) % MCV (80-100) fL MCH (26-34) PG MCHC (30-36) % RDW (11.6-14.8) % Plt Count (150-400) X10^3/uL Neut % (Auto) (50-75) % Lymph % (Auto) (25-40) % [place] % (Auto) (3-14) % Eos % (Auto) (2-4) % Baso % (Auto) (0-2) % Neut # (Auto) (6494-8120) /uL Lymph # (Auto) (8604-1338) /uL [place] # (Auto) (0-900) /uL Eos # (Auto) (0-450) /uL Baso # (Auto) (0-100) /uL Sodium 138 (137-145) mmol/L Potassium 3.6 (3.4-5.1) mmol/L Chloride 112 H (98-107) mmol/L Carbon Dioxide 18 L (22-32) mmol/L BUN 5 L (7-17) mg/dL Creatinine 0.50 L (0.52-1.04) mg/dL Estimated GFR > 60.0 (>60) mL/min BUN/Creatinine Ratio 10.0 (6-22) Glucose 91 (70-100) mg/dL Lactate 0.9 (0.7-2.1) mmol/L Calcium 9.1 (8.4-10.2) mg/dL Total Bilirubin 0.9 (0.2-1.3) mg/dL Conjugated Bilirubin 0.0 (0.0-0.3) md/dL Unconjugated Bilirubin 0.5 (0.0-1.1) mg/dL AST 44 H (14-36) IU/L ALT 40 (9-52) IU/L Alkaline Phosphatase 44 (38-126) U/L Total Protein 6.7 (6.3-8.2) g/dL Albumin 3.8 (3.5-5.0) g/dL Globulin 2.9 (1.7-4.1) g/dL Albumin/Globulin Ratio 1.3 (1.0-2.8) Urine Color Urine Appearance Urine pH (4.5-8.0) Ur Specific [place] (1.000-1.035) Urine Protein (Negative) Urine Glucose (UA) (Negative) g/dL Urine Ketones (NEGATIVE) Urine Occult Blood (Negative) Urine Nitrate (Negative) Urine Bilirubin (NEGATIVE) Urine Urobilinogen (0.2) E.U./dL Ur Leukocyte Esterase (NEGATIVE) Salicylates < 1.0 (<20) mg/dL Urine Opiates Screen (Negative) Ur Oxycodone Screen (Negative) Urine Methadone Screen (Negative) Acetaminophen < 10 L (10-30) ug/mL Ur Barbiturates Screen (Negative) U Tricyclic Antidepress (Negative) Ur Phencyclidine Scrn (Negative) Ur Amphetamines Screen (Negative) U Methamphetamines Scrn (Negative) Ur MDMA Scrn (Ecstasy) (Negative) U Benzodiazepines Scrn (Negative) Urine Cocaine Screen (Negative) U Marijuana (THC) Screen (Negative) Ethyl Alcohol < 10 mg/dL Discharge Plan Departure Patient Disposition: Home Clinical Impression: Alcohol abuse Alcohol withdrawal syndrome Qualifiers: Complication of substance-induced condition: uncomplicated Qualified Code(s): F10.230 - Alcohol dependence with withdrawal, uncomplicated Discharge Date/Time: 06/13/18 21:46 Interventions: ED Discharge Assessment Last Done: 06/13/18 21:45 Instructions: DI for Alcohol Abuse Activity Restrictions/Additional Instructions: *You have been diagnosed with [ alcohol withdrawal syndrome ] *What to do: *Take medications as directed. Given the circumstances of last night's visit you will need to have your meds given to you by [facility]. *Please expect a call from [facility]. Make sure your ringer is on and phone is charged. If you don't hear from them by midnight please call me and I'll figure out what is going on. *Return to ER if you should have any new, worsening or concerning symptoms Prescriptions: New lorazepam [Ativan] 1 mg tablet See Rx Instructions .ROUTE .COMPLEX PRN (Reason: alcohol withdrawal) Qty: 19 RF: 0 ondansetron 4 mg tablet,disintegrating 4 mg PO TID-QID PRN (Reason: nausea and vomiting) Qty: 10 RF: 0 No Action fluconazole [Diflucan] 150 MG tablet 150 mg PO QDAY Qty: 1 RF: 0 chlordiazepoxide HCl 25 MG capsule 25 mg PO SEE INSTRUCTIONS Qty: 30 RF: 0 Referrals: [facility] [Outside] Alcohol [facility] [Outside]
[2018-06-13 20:09] LABS: Lactate (Lactic Acid) 0.9 mmol/L (0.7-2.1)
[2018-06-13 20:20] VITALS: BP 129/67; PULSE 50; RESP 17; O2SAT 99
--- NOTE | 2018-06-13 20:23 | ED_ITS ---
HPI - Alcohol General Chief Complaint: Toxicology Problem Stated Complaint: States Alcohol withdrawl symptoms Time Seen by Provider: 06/13/18 18:17 Source: patient and family Mode of arrival: ambulatory Limitations: no limitations History of Present Illness HPI narrative: A 48-year-old female with extensive history of alcohol abuse, upwards of 10-15 averages daily presents with her in the chief complaint of withdrawal type symptoms. Her last drink was about 24 hr ago and she feels a mild headache some agitation has a resting tremor and feels nauseated. She has been through withdrawals before but never has ceased. She presented to the emergency department last evening after an intentional overdose of multiple medications (please see note from last visit for these details) patient was here for an extensive stay and was medically cleared earlier today. Patient was seen and evaluated by social work and had reach out to psychiatrist as well as the [facility] team. Patient very adamantly denies any ongoing suicidal ideation. She wishes to gain help with her detoxification from alcohol and states she has never been to a detox facility before. She states she made multiple calls today but struck out MD complaint: alcohol withdrawal Last drink: hours (ago) Chronic alcohol use: Yes Previous visits for alcohol intoxication: No Recent trauma: No Treatments prior to arrival: none Related Data Previous Rx's Medication Instructions Recorded fluconazole [Diflucan] 150 mg PO QDAY #1 tab 01/13/17 chlordiazepoxide HCl 25 mg PO SEE INSTRUCTIONS #30 cap 07/26/17 lorazepam [Ativan] See Rx Instructions .ROUTE 06/13/18 .COMPLEX PRN #19 tab ondansetron 4 mg PO TID-QID PRN #10 tab 06/13/18 Allergies Allergy/AdvReac Type Severity Reaction Status Date / Time aspirin [ASPIRIN] AdvReac Severe RING IN Verified 06/12/18 21:52 EARS. ASPIRIN Allergy Severe RINGING IN Uncoded 06/12/18 21:52 EARS & TINGLING ALL OVER BODY Review of Systems Constitutional Denies chills, Reports fatigue, Denies fever(s), Denies lethargy and Denies weakness Eyes Denies change in vision, Denies eye discharge, Denies irritation and Denies loss of vision ENT Ears, Nose, Mouth, and Throat: Denies change in voice, Denies neck pain and Den ies sore throat Cardiovascular Denies chest pain, Reports irregular heart rhythm, Reports lightheadedness, Reports palpitations, Denies dyspnea, Denies dyspnea on exertion and Denies orthopnea Respiratory Denies cough, Denies dyspnea, Denies dyspnea on exertion and Denies wheezing Gastrointestinal Gastrointestinal: Denies abdominal pain, Denies change in bowel habits, Denies diarrhea, Denies nausea and Denies vomiting Genitourinary Denies hematuria, Denies flank pain, Denies urinary incontinence and Denies urinary urgency Musculoskeletal Denies neck pain Integumentary/Breasts Denies pruritus, Denies erythema, Denies rash and Denies wounds Neurologic Reports confusion, Denies loss of vision and Denies weakness Comments: tremor Psychiatric Denies anxiety, Reports confusion, Denies depression, Denies homicidal ideation and Denies suicidal ideation Endocrine Reports fatigue and Reports palpitations Hematologic/Lymphatic Denies easy bruising Allergic/Immunologic Denies wheezing [facility] Medical History Alcohol abuse (Acute) Anxiety (Acute) Social History Smoking Status: Current every day smoker Social History Smoking Status: Current every day smoker Exam Narrative Exam Narrative: GENERAL: 48-year-old female appears older than stated age, she is a obviously a bit agitated with a resting tremor HEAD: Atraumatic. Normocephalic. No temporal or scalp tenderness. EYES: Pupils equal round and reactive. Extraocular motions intact. No scleral icterus. No injection or drainage. ENT: Nose without bleeding, purulent drainage or septal hematoma. Throat without erythema, tonsillar hypertrophy or exudate. Uvula midline. Airway patent. NECK: Trachea midline. No JVD or lymphadenopathy. Supple, nontender, no meningeal signs. CARDIOVASCULAR: Regular rate and rhythm without murmurs, gallops, or rubs. RESPIRATORY: Clear to auscultation. Breath sounds equal bilaterally. No wheezes, rales, or rhonchi. GASTROINTESTINAL: Abdomen soft, non-tender, nondistended. No hepato- splenomegaly, or palpable masses. No guarding. EXTREMITIES: No clubbing, cyanosis, or edema. No joint tenderness, effusion, or edema noted. BACK: Nontender without deformity or crepitance. No flank tenderness. NEURO: AOx3. Mild resting tremor SKIN: No rash or erythema. Initial Vital Signs Initial Vital Signs: Vital Signs Temperature 99.9 F H 06/13/18 17:21 Pulse Rate 59 L 06/13/18 17:21 Respiratory Rate 18 06/13/18 17:21 Blood Pressure 159/79 H 06/13/18 17:21 Pulse Oximetry 99 06/13/18 17:21 Course Orders Ordered: ED Orders 06/13/18 19:10 Urinalysis Sreen (Dip Only) Stat Urine Drug Screen, Rapid Stat 06/13/18 19:35 Acetaminophen Stat Complete Blood Count AUTO DIFF Stat Comprehensive Metabolic Panel Stat Ethanol (ETOH) Stat Hepatic (Liver) Panel Stat Salicylate Stat 06/13/18 19:50 Lactate (Lactic Acid) Stat Discontinued Medications Sodium Chloride (Normal Saline 0.9%) 1,000 mls @ 1,000 mls/hr IV BOLUS ONE Stop: 06/13/18 19:37 Last Admin: 06/13/18 19:59 Dose: 1,000 mls/hr Lorazepam (Ativan) 2 mg IV NOW ONE Stop: 06/13/18 18:39 Last Admin: 06/13/18 20:00 Dose: 2 mg Lorazepam (Ativan) 2 mg IV NOW ONE Stop: 06/13/18 20:45 Last Admin: 06/13/18 21:09 Dose: 2 mg Lorazepam (Ativan) 2 mg PO NOW ONE Stop: 06/13/18 20:45 Last Admin: 06/13/18 21:09 Dose: 2 mg Ondansetron HCl (Zofran) 4 mg IV NOW ONE Stop: 06/13/18 18:39 Last Admin: 06/13/18 19:59 Dose: 4 mg Reevaluation(s) Reevaluation #1: Tru for Alcohol Withdrawal from [employer] on 06/13/2018 All calculations should be rechecked by clinician prior to use RESULT SUMMARY: 10 points Patients with scores ?9 may require medication for withdrawal. INPUTS: Nausea/vomiting ?> 2 = (More severe symptoms) Tremor ?> 4 = Moderate, with patient's arms extended Paroxysmal sweats ?> 0 = No sweat visible Anxiety ?> 1 = Mildly anxious Agitation ?> 1 = Somewhat more activity than normal activty Tactile disturbances ?> 0 = None Auditory disturbances ?> 0 = Not present Visual disturbances ?> 0 = Not present Headache/fullness in head ?> 2 = Mild Orientation/clouding of sensorium ?> 0 = Oriented, can do serial additions Reevaluation #2: Patient denies any ongoing suicidal ideation. I have talked with Mom to [facility] and they assure me the [facility] will contact this patient tonight Reevaluation #3: [facility] called patient just as she was being discharged Vital Signs - 8 hr 06/13/18 17:21 06/13/18 20:20 06/13/18 20:30 Temperature 99.9 F H Pulse Rate 59 L 50 L 85 Respiratory Rate 18 17 16 Blood Pressure 159/79 H Blood Pressure [Left Arm] 129/67 112/65 Pulse Oximetry 99 99 30 L 06/13/18 21:10 06/13/18 21:39 Temperature Pulse Rate 60 88 Respiratory Rate 17 17 Blood Pressure Blood Pressure [Left Arm] 112/65 130/77 Pulse Oximetry 99 99 MDM - Alcohol Lab Data Result diagrams: 06/13/18 19:35 06/13/18 19:35 Labs: Lab Results 06/13/18 06/13/18 06/13/18 Range/Units 19:10 19:10 19:35 WBC 8.5 (4.5-11.0) X10^3/uL RBC 3.60 L (4.0-5.2) X10^6/uL Hgb 12.5 (12.0-16.0) g/dL Hct 36.4 (36-46) % MCV 101.2 H (80-100) fL MCH 34.6 H (26-34) PG MCHC 34.2 (30-36) % RDW 14.8 (11.6-14.8) % Plt Count 129 L (150-400) X10^3/uL Neut % (Auto) 71.7 (50-75) % Lymph % (Auto) 21.1 L (25-40) % [place] % (Auto) 5.6 (3-14) % Eos % (Auto) 1.2 L (2-4) % Baso % (Auto) 0.4 (0-2) % Neut # (Auto) 6100 (2620-5293) /uL Lymph # (Auto) 1800 (8229-0590) /uL [place] # (Auto) 500 (0-900) /uL Eos # (Auto) 100 (0-450) /uL Baso # (Auto) 0 (0-100) /uL Sodium (137-145) mmol/L Potassium (3.4-5.1) mmol/L Chloride (98-107) mmol/L Carbon Dioxide (22-32) mmol/L BUN (7-17) mg/dL Creatinine (0.52-1.04) mg/dL Estimated GFR (>60) mL/min BUN/Creatinine Ratio (6-22) Glucose (70-100) mg/dL Lactate (0.7-2.1) mmol/L Calcium (8.4-10.2) mg/dL Total Bilirubin (0.2-1.3) mg/dL Conjugated Bilirubin (0.0-0.3) md/dL Unconjugated Bilirubin (0.0-1.1) mg/dL AST (14-36) IU/L ALT (9-52) IU/L Alkaline Phosphatase (38-126) U/L Total Protein (6.3-8.2) g/dL Albumin (3.5-5.0) g/dL Globulin (1.7-4.1) g/dL Albumin/Globulin Ratio (1.0-2.8) Urine Color Yellow Urine Appearance Clear Urine pH 5.5 (4.5-8.0) Ur Specific [place] 1.010 (1.000-1.035) Urine Protein Negative (Negative) Urine Glucose (UA) Negative (Negative) g/dL Urine Ketones Negative (NEGATIVE) Urine Occult Blood 1+ H (Negative) Urine Nitrate Negative (Negative) Urine Bilirubin Negative (NEGATIVE) Urine Urobilinogen 0.2 (0.2) E.U./dL Ur Leukocyte Esterase Negative (NEGATIVE) Salicylates (<20) mg/dL Urine Opiates Screen Negative (Negative) Ur Oxycodone Screen Negative (Negative) Urine Methadone Screen Negative (Negative) Acetaminophen (10-30) ug/mL Ur Barbiturates Screen Negative (Negative) U Tricyclic Antidepress Negative (Negative) Ur Phencyclidine Scrn Negative (Negative) Ur Amphetamines Screen Negative (Negative) U Methamphetamines Scrn Negative (Negative) Ur MDMA Scrn (Ecstasy) Negative (Negative) U Benzodiazepines Scrn Positive H (Negative) Urine Cocaine Screen Negative (Negative) U Marijuana (THC) Screen Positive H (Negative) Ethyl Alcohol mg/dL 06/13/18 06/13/18 Range/Units 19:35 19:50 WBC (4.5-11.0) X10^3/uL RBC (4.0-5.2) X10^6/uL Hgb (12.0-16.0) g/dL Hct (36-46) % MCV (80-100) fL MCH (26-34) PG MCHC (30-36) % RDW (11.6-14.8) % Plt Count (150-400) X10^3/uL Neut % (Auto) (50-75) % Lymph % (Auto) (25-40) % [place] % (Auto) (3-14) % Eos % (Auto) (2-4) % Baso % (Auto) (0-2) % Neut # (Auto) (9703-9389) /uL Lymph # (Auto) (4322-7007) /uL [place] # (Auto) (0-900) /uL Eos # (Auto) (0-450) /uL Baso # (Auto) (0-100) /uL Sodium 138 (137-145) mmol/L Potassium 3.6 (3.4-5.1) mmol/L Chloride 112 H (98-107) mmol/L Carbon Dioxide 18 L (22-32) mmol/L BUN 5 L (7-17) mg/dL Creatinine 0.50 L (0.52-1.04) mg/dL Estimated GFR > 60.0 (>60) mL/min BUN/Creatinine Ratio 10.0 (6-22) Glucose 91 (70-100) mg/dL Lactate 0.9 (0.7-2.1) mmol/L Calcium 9.1 (8.4-10.2) mg/dL Total Bilirubin 0.9 (0.2-1.3) mg/dL Conjugated Bilirubin 0.0 (0.0-0.3) md/dL Unconjugated Bilirubin 0.5 (0.0-1.1) mg/dL AST 44 H (14-36) IU/L ALT 40 (9-52) IU/L Alkaline Phosphatase 44 (38-126) U/L Total Protein 6.7 (6.3-8.2) g/dL Albumin 3.8 (3.5-5.0) g/dL Globulin 2.9 (1.7-4.1) g/dL Albumin/Globulin Ratio 1.3 (1.0-2.8) Urine Color Urine Appearance Urine pH (4.5-8.0) Ur Specific [place] (1.000-1.035) Urine Protein (Negative) Urine Glucose (UA) (Negative) g/dL Urine Ketones (NEGATIVE) Urine Occult Blood (Negative) Urine Nitrate (Negative) Urine Bilirubin (NEGATIVE) Urine Urobilinogen (0.2) E.U./dL Ur Leukocyte Esterase (NEGATIVE) Salicylates < 1.0 (<20) mg/dL Urine Opiates Screen (Negative) Ur Oxycodone Screen (Negative) Urine Methadone Screen (Negative) Acetaminophen < 10 L (10-30) ug/mL Ur Barbiturates Screen (Negative) U Tricyclic Antidepress (Negative) Ur Phencyclidine Scrn (Negative) Ur Amphetamines Screen (Negative) U Methamphetamines Scrn (Negative) Ur MDMA Scrn (Ecstasy) (Negative) U Benzodiazepines Scrn (Negative) Urine Cocaine Screen (Negative) U Marijuana (THC) Screen (Negative) Ethyl Alcohol < 10 mg/dL Discharge Plan Departure Patient Disposition: Home Clinical Impression: Alcohol abuse Alcohol withdrawal syndrome Qualifiers: Complication of substance-induced condition: uncomplicated Qualified Code(s): F10.230 - Alcohol dependence with withdrawal, uncomplicated Discharge Date/Time: 06/13/18 21:46 Interventions: ED Discharge Assessment Last Done: 06/13/18 21:45 Instructions: DI for Alcohol Abuse Activity Restrictions/Additional Instructions: *You have been diagnosed with [ alcohol withdrawal syndrome ] *What to do: *Take medications as directed. Given the circumstances of last night's visit you will need to have your meds given to you by Frank. *Please expect a call from [employer]. Make sure your ringer is on and phone is charged. If you don't hear from them by midnight please call me and I'll figure out what is going on. *Return to ER if you should have any new, worsening or concerning symptoms Prescriptions: New lorazepam [Ativan] 1 mg tablet See Rx Instructions .ROUTE .COMPLEX PRN (Reason: alcohol withdrawal) Qty: 19 RF: 0 ondansetron 4 mg tablet,disintegrating 4 mg PO TID-QID PRN (Reason: nausea and vomiting) Qty: 10 RF: 0 No Action fluconazole [Diflucan] 150 MG tablet 150 mg PO QDAY Qty: 1 RF: 0 chlordiazepoxide HCl 25 MG capsule 25 mg PO SEE INSTRUCTIONS Qty: 30 RF: 0 Referrals: [facility] [Outside] [facility] [Outside]
[2018-06-13 20:30] VITALS: BP 112/65; PULSE 85; RESP 16; O2SAT 30
[2018-06-13] MEDS: LORazepam 0.5 MG TABLET 2 MG PO (21:09)
[2018-06-13 21:10] VITALS: BP 112/65; PULSE 60; RESP 17; O2SAT 99
--- NOTE | 2018-06-13 21:26 | PC.NURSE ---
1999 - patient has ambulated a few times to bathroom with remaining in bathroom with patient. Patient is returned to fluids and monitor. pt. has been calm and cooperative the entire visit. curtains remain open, remains at BS.
--- NOTE | 2018-06-13 21:29 | PC.NURSE ---
Dr. finn at BS to explain discharge medication regimen to patient. medications given to with strict instructions to keep from patient until dose is due. Both patient and voice gratitude for support of physician during this process and repeat numerous times that they will be compliant and safe with medications to respect physicians stanley in them. The patient has ambulated a few times since 1999 to bathroom with remaining in bathroom with patient. Patient is returned to fluids and monitor. pt. has been calm and cooperative the entire visit. curtains remain open, remains at BS.
[2018-06-13 21:39] VITALS: BP 130/77; PULSE 88; RESP 17; O2SAT 99
--- NOTE | 2018-06-13 21:43 | PC.NURSE ---
Patient received call from IT for follow up friday. Patient expressed huge relief and content with plan.
--- NOTE | 2018-07-20 14:05 | PC.NURSE ---
Per Deann WALLER, clint received 1000ml of NS completed on 06/13/2018 at 2110
== END 2018-06-13 21:46 | disposition home or self-care (01) ==
PROVIDERS: Emergency Provider Emergency Medicine
DX: F10.10 Alcohol abuse, uncomplicated (principal)
CPT/HCPCS: 36591; 80053; 80076; 80305; 80320; 80329; 81003; 83605; 85025; 96361; 96374; 96375; 96376; 99284; 99285; G0480; J2060; J2405

== ENCOUNTER 2018-09-17 17:21 | Emergency (ER) | payer SELFPAY ==
[2018-09-17 17:30] VITALS: BP 141/87; PULSE 98; RESP 13; TEMP 36.4; O2SAT 99; BMI 19.5
[2018-09-17 18:24] LABS: Add Manual Diff / Slide Review NO; Basophils Absolute Auto 100 /uL (0-100); Eosinophils Absolute Auto 100 /uL (0-450); Hematocrit 45.1 % (36-46); Hemoglobin 15.8 g/dL (12.0-16.0); Lymphocytes Absolute Auto 1900 /uL (1100-4500); Lymphocytes Percent Auto 28.9 % (25-40); Mean Corpuscular HGB Conc 34.9 % (30-36); Mean Corpuscular Hemoglobin 33.7 PG (26-34); Mean Corpuscular Volume 96.4 fL (80-100); Monocytes Absolute Auto 300 /uL (0-900); Neutrophils Absolute Auto 4100 /uL (1500-7000); Neutrophils Percent Auto 64.1 % (50-75); Platelet Count 254 X10^3/uL (150-400); Red Blood Cell Count 4.68 X10^6/uL (4.0-5.2); Red Cell Distribution Width 13.2 % (11.6-14.8); White Blood Cell Count 6.5 X10^3/uL (4.5-11.0)
[2018-09-17 18:36] LABS: Acetaminophen < 10 ug/mL (10-30); Alanine Aminotransferase 14 IU/L (9-52); Albumin Globulin Ratio 1.5 (1.0-2.8); Alkaline Phosphatase 83 U/L (38-126); Aspartate Aminotransferase 29 IU/L (14-36); BUN Creatinine Ratio 11.4 (6-22); Bilirubin Total 0.6 mg/dL (0.2-1.3); Blood Urea Nitrogen 8 mg/dL (7-17); Calcium 9.7 mg/dL (8.4-10.2); Carbon Dioxide 16 mmol/L (22-32); Chloride 106 mmol/L (98-107); Estimated Glomerular Filt Rate > 60.0 mL/min (>60); Ethanol (ETOH) 257 mg/dL; Globulin 3.3 g/dL (1.7-4.1); Glucose 88 mg/dL (70-100); HEMOLYSIS < 15 (0-50); Lipase 177 U/L (23-300); Potassium 3.7 mmol/L (3.4-5.1); Salicylate < 1.0 mg/dL (<20); Sodium 142 mmol/L (137-145); Total Protein 8.3 g/dL (6.3-8.2)
[2018-09-17 18:49] LABS: Amorphous Sediment Urine 1+; Bacteria Urine Few (2-10); Culture Indicated Urine Cult Not Indicated; Mucus Urine 1+ (Negative); RBC Urine 1-5/HPF (0-5/HPF); Squamous Epithelial Cell Urine 1-5 /HPF (0-5/HPF); WBC Urine 1-5/HPF (0-5/HPF)
[2018-09-17 19:00] LABS: Urine Amphetamines Negative (Negative); Urine Barbiturates Negative (Negative); Urine Benzodiazepines Negative (Negative); Urine Cocaine Negative (Negative); Urine MDMA Negative (Negative); Urine Methadone Negative (Negative); Urine Methamphetamines Negative (Negative); Urine Morphine/Opi cutoff 2000 Negative (Negative); Urine Oxycodone Negative (Negative); Urine Phencyclidine Negative (Negative); Urine Tetrahydrocannabinol Positive (Negative); Urine Tricyclic Antidepressant Negative (Negative)
[2018-09-17] MEDS: ONDANSETRON 4 MG/2 ML INJ IV (19:37)
[2018-09-17] MEDS: LORazepam 2 MG/ML INJ IV (19:37)
[2018-09-17] MEDS: THIAMINE 100 MG in DEXTROSE 5 % IN WATER 50 ML 204 ML IV (19:38)
[2018-09-17] MEDS: SODIUM CHLORIDE 0.9% 1,000 ML 1000 ML IV (19:38)
--- NOTE | 2018-09-17 19:49 | ED.ALCOHOL ---
HPI - Alcohol General Chief Complaint: Toxicology Problem Stated Complaint: alcohol withdrawls Time Seen by Provider: 09/17/18 18:22 Source: patient and family Mode of arrival: ambulatory Limitations: no limitations History of Present Illness HPI narrative: 48-year-old female nonsmoker and daily drinker presents with multiple family members requesting help withdrawing from alcohol. She drinks approximately 3 bottles of wine daily and has been through the DTs before and has even had seizures. Her last drink was just prior to her arrival. Over the past few hours she has begun to have some headache, agitation, anxiety some nausea, generalized abdominal pain and resting tremors. She denies any head injury nor fever or chills. She denies the use of any other drugs or substances. She is requesting help finding rehab. She denies any history of hematemesis, coffee-ground emesis or the passage of dark and tarry stools MD complaint: alcohol intoxication, alcohol withdrawal and alcohol dependence Last drink: just prior to this admission Chronic alcohol use: Yes Previous visits for alcohol intoxication: Yes Recent trauma: No Associated symptoms: nausea, tremors and abdominal pain Treatments prior to arrival: none Related Data Previous Rx's Medication Instructions Recorded lorazepam [Ativan] See Rx Instructions .ROUTE 09/17/18 .COMPLEX #19 tab ondansetron 4 mg PO Q6H PRN #10 tab 09/17/18 Allergies Allergy/AdvReac Type Severity Reaction Status Date / Time aspirin [ASPIRIN] AdvReac Severe RING IN Verified 09/17/18 17:30 EARS. ASPIRIN Allergy Severe RINGING IN Uncoded 06/12/18 21:52 EARS & TINGLING ALL OVER BODY Review of Systems Constitutional Reports chills, Denies fever(s), Reports headache(s), Denies lethargy and Denies weakness Eyes Denies change in vision, Denies eye discharge, Denies irritation and Denies loss of vision ENT Ears, Nose, Mouth, and Throat: Denies change in voice, Reports headache(s), Denies neck pain and Denies sore throat Cardiovascular Denies chest pain, Denies irregular heart rhythm, Denies lightheadedness, Denies palpitations, Denies dyspnea, Denies dyspnea on exertion and Denies orthopnea Respiratory Denies cough, Denies dyspnea, Denies dyspnea on exertion and Denies wheezing Gastrointestinal Gastrointestinal: Reports abdominal pain, Denies change in bowel habits, Denies diarrhea, Reports nausea and Denies vomiting Genitourinary Denies hematuria, Denies flank pain, Denies urinary incontinence and Denies urinary urgency Musculoskeletal Denies neck pain Integumentary/Breasts Denies pruritus, Denies erythema, Denies rash and Denies wounds Neurologic Reports behavioral changes, Denies confusion, Reports headache(s), Denies loss of vision and Denies weakness Comments: Resting tremor Psychiatric Reports anxiety, Reports behavioral changes, Denies confusion, Denies depression, Reports irritability, Denies homicidal ideation and Denies suicidal ideation Endocrine Denies palpitations Hematologic/Lymphatic Denies easy bruising Allergic/Immunologic Denies wheezing [facility] Medical History Alcohol abuse (Acute) Anxiety (Acute) Social History Smoking Status: Current every day smoker Social History Smoking Status: Current every day smoker Exam Narrative Exam Narrative: GENERAL: 48-year-old female appears older than stated age. She is agitated, anxious and difficult to keep on task. HEAD: Atraumatic. Normocephalic. No temporal or scalp tenderness. EYES: Pupils equal round and reactive. Extraocular motions intact. No scleral icterus. No injection or drainage. ENT: Nose without bleeding, purulent drainage or septal hematoma. Throat without erythema, tonsillar hypertrophy or exudate. Uvula midline. Airway patent. NECK: Trachea midline. No JVD or lymphadenopathy. Supple, nontender, no meningeal signs. CARDIOVASCULAR: Regular rate and rhythm without murmurs, gallops, or rubs. RESPIRATORY: Clear to auscultation. Breath sounds equal bilaterally. No wheezes, rales, or rhonchi. GASTROINTESTINAL: Abdomen soft, non-tender, nondistended. No hepato-splenomegaly, or palpable masses. No guarding. EXTREMITIES: Minor resting tremor with arms extended No clubbing, cyanosis, or edema. No joint tenderness, effusion, or edema noted. BACK: Nontender without deformity or crepitance. No flank tenderness. NEURO: Flight of ideas and pressured speech SKIN: No rash or erythema. Initial Vital Signs Initial Vital Signs: Vital Signs Temperature 97.6 F 09/17/18 17:30 Pulse Rate 98 H 09/17/18 17:30 Respiratory Rate 13 09/17/18 17:30 Blood Pressure 141/87 H 09/17/18 17:30 Pulse Oximetry 99 09/17/18 17:30 Scores ABCD2 Citation: Tru for Alcohol Withdrawal from [facility] on 09/17/2018 All calculations should be rechecked by clinician prior to use RESULT SUMMARY: 17 points Patients with scores ?9 may require medication for withdrawal. INPUTS: Nausea/vomiting ?> 3 = (More severe symptoms) Tremor ?> 3 = (More severe symptoms) Paroxysmal sweats ?> 1 = Barely perceptible sweating, palms moist Anxiety ?> 3 = (More severe symptoms) Agitation ?> 3 = (More severe symptoms) Tactile disturbances ?> 1 = Very mild itching, pin and needles, burning, or numbness Auditory disturbances ?> 0 = Not present Visual disturbances ?> 0 = Not present Headache/fullness in head ?> 3 = Moderate Orientation/clouding of sensorium ?> 0 = Oriented, can do serial additions Course Orders Ordered: Discontinued Medications Sodium Chloride (Normal Saline 0.9%) 1,000 mls @ 1,000 mls/hr IV BOLUS ONE Stop: 09/17/18 20:07 Last Infusion: 09/17/18 21:29 Dose: 0 mls/hr Admin: 09/17/18 19:38 Dose: 1,000 mls/hr Thiamine HCl 100 mg/ Dextrose 51 mls @ 204 mls/hr IV NOW ONE Stop: 09/17/18 19:09 Last Infusion: 09/17/18 20:00 Dose: 0 mls/hr Admin: 09/17/18 19:38 Dose: 204 mls/hr Lorazepam (Ativan) 2 mg IV NOW ONE Stop: 09/17/18 19:14 Last Admin: 09/17/18 19:37 Dose: 2 mg Lorazepam (Ativan) 2 mg IV NOW ONE Stop: 09/18/18 00:01 Last Admin: 09/18/18 00:02 Dose: 2 mg Lorazepam (Ativan) 1 mg IV NOW ONE Stop: 09/18/18 03:37 Last Admin: 09/18/18 03:59 Dose: 1 mg Lorazepam (Ativan) 2 mg PO NOW ONE Stop: 09/18/18 03:37 Last Admin: 09/18/18 04:00 Dose: 2 mg Nicotine (Nicoderm) 21 mg TOP NOW ONE Stop: 09/17/18 21:26 Last Admin: 09/17/18 21:34 Dose: 21 mg Ondansetron HCl (Zofran) 4 mg IV Q4HR PRN PRN Reason: Nausea And Vomiting Last Admin: 09/17/18 19:37 Dose: 4 mg Reevaluation(s) Reevaluation #1: Patient has tremendous improvement after fluids, Ativan and thiamine. Her CIWA score is greatly improved. We are calling local detox facilities to help her find placement. She is medically cleared at 2015 Consultations Consultation #1: patient has available bed at [facility], can leave here at about 4am Vital Signs - 8 hr 09/17/18 21:03 09/18/18 00:00 09/18/18 03:23 Temperature 97.9 F Pulse Rate 94 H 105 H 114 H Respiratory Rate 18 22 14 Blood Pressure [Left Arm] 133/81 113/63 Pulse Oximetry 99 96 MDM - Alcohol Lab Data Result diagrams: 09/17/18 18:14 09/17/18 18:14 Labs: Lab Results 09/17/18 09/17/18 09/17/18 Range/Units 18:14 18:14 18:21 WBC 6.5 (4.5-11.0) X10^3/uL RBC 4.68 (4.0-5.2) X10^6/uL Hgb 15.8 (12.0-16.0) g/dL Hct 45.1 (36-46) % MCV 96.4 (80-100) fL MCH 33.7 (26-34) PG MCHC 34.9 (30-36) % RDW 13.2 (11.6-14.8) % Plt Count 254 (150-400) X10^3/uL Neut % (Auto) 64.1 (50-75) % Lymph % (Auto) 28.9 (25-40) % Bell % (Auto) 5.0 (3-14) % Eos % (Auto) 1.0 L (2-4) % Baso % (Auto) 1.0 (0-2) % Neut # (Auto) 4100 (0228-9238) /uL Lymph # (Auto) 1900 (4235-8910) /uL Bell # (Auto) 300 (0-900) /uL Eos # (Auto) 100 (0-450) /uL Baso # (Auto) 100 (0-100) /uL Sodium 142 (137-145) mmol/L Potassium 3.7 (3.4-5.1) mmol/L Chloride 106 (98-107) mmol/L Carbon Dioxide 16 L (22-32) mmol/L BUN 8 (7-17) mg/dL Creatinine 0.70 (0.52-1.04) mg/dL Estimated GFR > 60.0 (>60) mL/min BUN/Creatinine Ratio 11.4 (6-22) Glucose 88 (70-100) mg/dL Calcium 9.7 (8.4-10.2) mg/dL Total Bilirubin 0.6 (0.2-1.3) mg/dL AST 29 (14-36) IU/L ALT 14 (9-52) IU/L Alkaline Phosphatase 83 (38-126) U/L Total Protein 8.3 H (6.3-8.2) g/dL Albumin 5.0 (3.5-5.0) g/dL Globulin 3.3 (1.7-4.1) g/dL Albumin/Globulin Ratio 1.5 (1.0-2.8) Lipase 177 (23-300) U/L Urine RBC (0-5/HPF) Urine WBC (0-5/HPF) Ur Squamous Epith Cells (0-5/HPF) Amorphous Sediment Urine Bacteria (None) Urine Mucus (Negative) Ur Culture Indicated? Salicylates < 1.0 (<20) mg/dL Urine Opiates Screen Negative (Negative) Ur Oxycodone Screen Negative (Negative) Urine Methadone Screen Negative (Negative) Acetaminophen < 10 L (10-30) ug/mL Ur Barbiturates Screen Negative (Negative) U Tricyclic Antidepress Negative (Negative) Ur Phencyclidine Scrn Negative (Negative) Ur Amphetamines Screen Negative (Negative) U Methamphetamines Scrn Negative (Negative) Ur MDMA Scrn (Ecstasy) Negative (Negative) U Benzodiazepines Scrn Negative (Negative) Urine Cocaine Screen Negative (Negative) U Marijuana (THC) Screen Positive H (Negative) Ethyl Alcohol 257 mg/dL 09/17/18 Range/Units 18:21 WBC (4.5-11.0) X10^3/uL RBC (4.0-5.2) X10^6/uL Hgb (12.0-16.0) g/dL Hct (36-46) % MCV (80-100) fL MCH (26-34) PG MCHC (30-36) % RDW (11.6-14.8) % Plt Count (150-400) X10^3/uL Neut % (Auto) (50-75) % Lymph % (Auto) (25-40) % Bell % (Auto) (3-14) % Eos % (Auto) (2-4) % Baso % (Auto) (0-2) % Neut # (Auto) (5370-4680) /uL Lymph # (Auto) (6059-7485) /uL Bell # (Auto) (0-900) /uL Eos # (Auto) (0-450) /uL Baso # (Auto) (0-100) /uL Sodium (137-145) mmol/L Potassium (3.4-5.1) mmol/L Chloride (98-107) mmol/L Carbon Dioxide (22-32) mmol/L BUN (7-17) mg/dL Creatinine (0.52-1.04) mg/dL Estimated GFR (>60) mL/min BUN/Creatinine Ratio (6-22) Glucose (70-100) mg/dL Calcium (8.4-10.2) mg/dL Total Bilirubin (0.2-1.3) mg/dL AST (14-36) IU/L ALT (9-52) IU/L Alkaline Phosphatase (38-126) U/L Total Protein (6.3-8.2) g/dL Albumin (3.5-5.0) g/dL Globulin (1.7-4.1) g/dL Albumin/Globulin Ratio (1.0-2.8) Lipase (23-300) U/L Urine RBC 1-5/hpf (0-5/HPF) Urine WBC 1-5/hpf (0-5/HPF) Ur Squamous Epith Cells 1-5 /hpf (0-5/HPF) Amorphous Sediment 1+ Urine Bacteria Few (2-10) H (None) Urine Mucus 1+ H (Negative) Ur Culture Indicated? Cult not indicated Salicylates (<20) mg/dL Urine Opiates Screen (Negative) Ur Oxycodone Screen (Negative) Urine Methadone Screen (Negative) Acetaminophen (10-30) ug/mL Ur Barbiturates Screen (Negative) U Tricyclic Antidepress (Negative) Ur Phencyclidine Scrn (Negative) Ur Amphetamines Screen (Negative) U Methamphetamines Scrn (Negative) Ur MDMA Scrn (Ecstasy) (Negative) U Benzodiazepines Scrn (Negative) Urine Cocaine Screen (Negative) U Marijuana (THC) Screen (Negative) Ethyl Alcohol mg/dL Point of Care Testing Test Results Negative Urine Dip Bedside Urine Glucose Negative Bedside Urine Bilirubin - Negative Bedside Urine Ketone ++ 40 Urine Specific [place] 1.025 Bedside Urine Occult Blood ++ Bedside Urine pH 6.0 Bedside Urine Protein +/- 15 Bedside Urine Urobilinogen - Negative Bedside Urine Nitrite - Negative Bedside Urine Leukocytes - Negative Esterase Discharge Plan Departure Patient Disposition: Home Clinical Impression: Alcohol abuse Alcohol withdrawal syndrome Qualifiers: Complication of substance-induced condition: uncomplicated Qualified Code(s): F10.230 - Alcohol dependence with withdrawal, uncomplicated Alcoholic intoxication Qualifiers: Complication of substance-induced condition: uncomplicated Qualified Code(s): F10.920 - Alcohol use, unspecified with intoxication, uncomplicated Discharge Date/Time: 09/18/18 04:25 Interventions: ED Discharge Assessment Last Done: 09/18/18 04:25 Instructions: DI for Alcohol Abuse Prescriptions: New lorazepam [Ativan] 1 mg tablet See Rx Instructions .ROUTE .COMPLEX Qty: 19 RF: 0 ondansetron 4 mg tablet,disintegrating 4 mg PO Q6H PRN (Reason: nausea and vomiting) Qty: 10 RF: 0
[2018-09-17 21:03] VITALS: BP 133/81; PULSE 94; RESP 18; TEMP 36.6; O2SAT 99
[2018-09-17] MEDS: NICOTINE 21 MG PATCH TOP (21:34)
[2018-09-18] VITALS: BP 113/63; PULSE 105; RESP 22; O2SAT 96
[2018-09-18] MEDS: LORazepam 2 MG/ML INJ IV (00:02)
[2018-09-18 03:23] VITALS: PULSE 114; RESP 14
[2018-09-18 03:45] VITALS: BP 138/77; RESP 20
[2018-09-18] MEDS: LORazepam 2 MG/ML INJ 1 MG IV (03:59)
[2018-09-18] MEDS: LORazepam 0.5 MG TABLET 2 MG PO (04:00)
[2018-09-18 04:02] VITALS: PULSE 104
--- NOTE | 2018-09-19 12:58 | PC.NURSE ---
Addendum entered by Aliza Chahal R.N. 09/19/18 13:11: spoke with pt, viewed her ID. called facility verified the fax number. pt wanted her info for last ed visit to be faxed to [facility]. Original Note: pt here, signed medical release form by [facility]. reprinting her discharge packet.
== END 2018-09-18 04:25 | disposition home or self-care (01) ==
PROVIDERS: Emergency Medicine; Emergency Provider Emergency Medicine
DX: F10.230 Alcohol dependence with withdrawal, uncomplicated (principal)
CPT/HCPCS: 36415; 80053; 80305; 80320; 80329; 81003; 81015; 81025; 83690; 85025; 96361; 96374; 96375; 96376; 99284; G0480; J2060; J2405

== ENCOUNTER → 2021-12-20 18:09 | Outpatient (CLI) | payer BC, SELFPAY | PROVIDERS: Visit Provider Registered Nurse | DX: N39.0 Urinary tract infection, site not specified (principal) | CPT/HCPCS: 87086 ==

== ENCOUNTER → 2022-09-19 13:11 | Outpatient (CLI) | payer BC, SELFPAY ==
[2022-09-19 14:35] LABS: Influenza A - CEPHEID Flu A POSITIVE (NEGATIVE); Influenza B - CEPHEID Flu B NEGATIVE (NEGATIVE); Respiratory Syncytial Virus Negative (Negative)
[2022-09-19 14:36] LABS: COVID-19 CEPHEID 4-PLEX PCR Negative (Negative)
== END ==
PROVIDERS: Visit Provider Nurse Practitioner Family
DX: R05.1 Acute cough (principal)
CPT/HCPCS: 0241U

== ENCOUNTER 2024-11-04 09:12 | Emergency (ER) | payer OTHER, SELFPAY ==
[2024-11-04 09:23] VITALS: BP 168/72; PULSE 59; RESP 14; TEMP 37.2; O2SAT 100; BMI 25.0
[2024-11-04] MEDS: IBUPROFEN 400 MG TABLET 800 MG PO (09:29)
[2024-11-04] MEDS: ACETAMINOPHEN 325 MG TABLET 650 MG PO (09:29)
--- NOTE | 2024-11-04 11:40 | DI.RAD.S_ITS ---
PROCEDURE: XR LUMBAR SPINE 2-3V INDICATIONS: pop pain left lumbar TECHNIQUE: 3 views of the lumbar spine were acquired. COMPARISON: None. FINDINGS: Bones: 5 [id number] vertebrae are present. There is mild rightward curvature of lumbar spine with apex at L3 level. No vertebral body compression fractures. Degenerative endplate changes and bilateral facet arthrosis at L4-5 and L5-S1 levels are seen. No suspicious bony lesions. Soft tissues: Overlying bowel gas pattern is normal. No suspicious soft tissue calcifications. IMPRESSION: No acute vertebral body compression fracture or spondylolisthesis. Mild rightward curvature of lumbar spine as above. Mild spondylitic changes in lower lumbar spine. Dictated by: Andi Mario M.D. on 11/04/2024 at 11:58 Approved by: Andi Mario M.D. on 11/04/2024 at 11:59
[2024-11-04] MEDS: LIDOCAINE 5% PATCH 1 EACH TOP (11:59)
--- NOTE | 2024-11-04 12:15 | ED.BACK ---
HPI - Back Pain/Injury <Kemi Duran PA-C - Last Filed: 11/04/24 13:38> General Chief Complaint: Back Pain/Injury Stated Complaint: hurt lower back , felt something pop Time Seen by Provider: 11/04/24 11:04 Source: patient History of Present Illness HPI Narrative: Ms. Mendez is a very pleasant 54-year-old female with a past medical history of daily smoking who presents to the emergency department with her for left lower back pain since bending over this morning. Patient states few days ago she had a slight strain of her low back however the pain was insignificant. However today when bending over to pick something up she felt a ?pop? in her left lower back and has had persistent pain in the left lower back since then. She is ambulatory however it does cause increased pain in the left low back. Pain does not radiate anywhere including the leg of the abdomen. There is no pain on the midline of the spine or in the glute. She denies prior history of any back problems. Denies any numbness tingling or weakness of the lower extremity. No fevers chills or history of IV drug use. She received ibuprofen and Tylenol in the waiting room for the pain which has not helped. Denies bowel or bladder dysfunction, saddle anesthesia, direct trauma to the back or any other concerns. She does work for the [employer] and has to be quite active. Related Data Previous Rx's ?Medication ?Instructions ?Recorded lorazepam 1 mg tablet (Ativan) See Rx Instructions .Route 09/17/18 .COMPLEX #19 tabs ondansetron 4 mg disintegrating 4 mg PO Q6H PRN nausea and 09/17/18 tablet vomiting #10 tabs albuterol sulfate 90 mcg/actuation 2 puff inhalation Q6H PRN 03/13/23 aerosol inhaler shortness of breath or wheezing #6.7 grams benzonatate 200 mg capsule 200 mg PO BID PRN cough #28 caps 03/13/23 fluticasone propionate 50 1 spray intranasal Q12H #16 grams 03/13/23 mcg/actuation nasal spray,suspension (Flonase Allergy Relief) lidocaine 5 % topical patch 1 patch topical DAILY #30 ea 11/04/24 (Lidoderm) methocarbamol 500 mg tablet 500 mg PO TID #20 tabs 11/04/24 Allergies Allergy/AdvReac Type Severity Reaction Status Date / Time aspirin (ASPIRIN) AdvReac Severe RING IN Verified 11/04/24 09:23 EARS. Review of Systems <Kemi Duran PA-C - Last Filed: 11/04/24 13:38> Review of Systems ROS Unobtainable: All systems reviewed & are unremarkable except as noted in HPI and below Patient History <Kemi Duran PA-C - Last Filed: 11/04/24 13:38> Medical History Anxiety Alcohol abuse Social History Smoking Status: Current every day smoker Smoking Status: Current every day smoker alcohol intake frequency: 3 or more drinks per day Exam <Kemi Duran PA-C - Last Filed: 11/04/24 13:38> Narrative Exam Narrative: GENERAL: 54 year old patient appears stated age. Well-developed patient, in no acute distress. HEAD: Atraumatic. Normocephalic. EYES: No scleral icterus. No injection or drainage. NECK: Trachea midline. Cervical ROM intact. No midline cervical tenderness. CARDIOVASCULAR: Regular rate and rhythm. RESPIRATORY: ?Nonlabored respirations. ?Speaking in clear, full sentences. ?Clear to auscultation. Breath sounds equal bilaterally. No wheezes, rales, or rhonchi. ? GASTROINTESTINAL: Abdomen soft, non-tender, nondistended. EXTREMITIES: No lower extremity edema or joint tenderness. Lower extremities are warm and well perfused. 5/5 bilateral knee flexion/extension strength. BACK: No midline spinal tenderness. No reproducible paraspinal muscle tenderness however patient does have subjective pain with movement in the left lumbar paraspinal muscle group. This pain is exacerbated by going from sitting to standing position. Patient is ambulatory without assistance but with pain. No skin changes. NEURO: AOx3. ?Clear speech. ?Moves all 4 extremities appropriately. SKIN: No rash or erythema of visible areas Initial Vital Signs Initial Vital Signs: Vital Signs Temperature 99.0 F 11/04/24 09:23 Pulse Rate 59 L 11/04/24 09:23 Respiratory Rate 14 11/04/24 09:23 Blood Pressure 168/72 H 11/04/24 09:23 Pulse Oximetry 100 11/04/24 09:23 Oxygen Delivery Method Room Air 11/04/24 09:23 <Arnie Berry MD - Last Filed: 11/04/24 19:14> Initial Vital Signs Initial Vital Signs: Vital Signs Temperature 99.0 F 11/04/24 09:23 Pulse Rate 59 L 11/04/24 09:23 Respiratory Rate 14 11/04/24 09:23 Blood Pressure 168/72 H 11/04/24 09:23 Pulse Oximetry 100 11/04/24 09:23 Oxygen Delivery Method Room Air 11/04/24 09:23 Course <Kemi Duran PA-C - Last Filed: 11/04/24 13:38> Orders Ordered: ED Orders 11/04/24 11:40 XR lumbar spine 2-3V Stat Discontinued Medications Acetaminophen (Acetaminophen 325 Mg Tablet) 650 mg PO NOW ONE Stop: 11/04/24 09:27 Last Admin: 11/04/24 09:29 Dose: 650 mg Documented By: JACKI Ibuprofen (Ibuprofen 400 Mg Tablet) 800 mg PO NOW ONE Stop: 11/04/24 09:27 Last Admin: 11/04/24 09:29 Dose: 800 mg Documented By: JACKI Lidocaine (Lidocaine 5% Patch) 1 each TOP NOW ONE Stop: 11/04/24 11:41 Last Admin: 11/04/24 11:59 Dose: 1 each Documented By: SANDY Methocarbamol (Methocarbamol 500 Mg Tablet) 1,000 mg PO NOW ONE Stop: 11/04/24 11:41 Last Admin: 11/04/24 11:58 Dose: 1,000 mg Documented By: SANDY Vital Signs Vital signs: Vital Signs - 8 hr 11/04/24 13:00 Temperature 98.7 F Pulse Rate 56 L Respiratory Rate 16 Blood Pressure 126/62 Pulse Oximetry 98 Oxygen Delivery Method Room Air <Arnie Berry MD - Last Filed: 11/04/24 19:14> Orders Ordered: ED Orders 11/04/24 11:40 XR lumbar spine 2-3V Stat Discontinued Medications Acetaminophen (Acetaminophen 325 Mg Tablet) 650 mg PO NOW ONE Stop: 11/04/24 09:27 Last Admin: 11/04/24 09:29 Dose: 650 mg Documented By: JACKI Ibuprofen (Ibuprofen 400 Mg Tablet) 800 mg PO NOW ONE Stop: 11/04/24 09:27 Last Admin: 11/04/24 09:29 Dose: 800 mg Documented By: JACKI Lidocaine (Lidocaine 5% Patch) 1 each TOP NOW ONE Stop: 11/04/24 11:41 Last Admin: 11/04/24 11:59 Dose: 1 each Documented By: SANDY Methocarbamol (Methocarbamol 500 Mg Tablet) 1,000 mg PO NOW ONE Stop: 11/04/24 11:41 Last Admin: 11/04/24 11:58 Dose: 1,000 mg Documented By: SANDY Vital Signs Vital signs: Vital Signs - 8 hr 11/04/24 13:00 Temperature 98.7 F Pulse Rate 56 L Respiratory Rate 16 Blood Pressure 126/62 Pulse Oximetry 98 Oxygen Delivery Method Room Air MDM - Back Pain/Injury <Kemi Duran PA-C - Last Filed: 11/04/24 13:38> Medical Records Attestation: I reviewed the patient's medical records. Imaging Data Lumbar XR: Radiologist's Impression: PROCEDURE: XR LUMBAR SPINE 2-3V INDICATIONS: pop pain left lumbar TECHNIQUE: 3 views of the lumbar spine were acquired. COMPARISON: None. FINDINGS: Bones: 5 [id number] vertebrae are present. There is mild rightward curvature of lumbar spine with apex at L3 level. No vertebral body compression fractures. Degenerative endplate changes and bilateral facet arthrosis at L4-5 and L5-S1 levels are seen. No suspicious bony lesions. Soft tissues: Overlying bowel gas pattern is normal. No suspicious soft tissue calcifications. IMPRESSION: No acute vertebral body compression fracture or spondylolisthesis. Mild rightward curvature of lumbar spine as above. Mild spondylitic changes in lower lumbar spine. Dictated by: Andi Mario M.D. on 11/04/2024 at 11:58 Approved by: Andi Mario M.D. on 11/04/2024 at 11:59 [facility] Narrative Medical decision making narrative: 54-year-old female with a past medical history of daily smoking who presents to the emergency department with her for left lower back pain since bending over this morning. Differential diagnosis includes but is not limited to lumbar strain, sprain, tear, herniated disc, bulging disc, lumbar degenerative disc disease, compression fracture, etc. On exam patient is in no acute distress, nontoxic appearing, ambulatory but with the pain. She is focal subjective pain in the left lumbar paraspinal muscle region that is nonreproducible with a tenderness but is reproducible with movement. No bony tenderness, no lower extremity numbness tingling weakness, no bowel or bladder dysfunction or saddle anesthesia. We will obtain baseline lumbar x-ray imaging, patient has already received ibuprofen and Tylenol declines opioids or stronger pain medication however we will treat with Lidoderm and methocarbamol. X-ray reveals no acute vertebral body compression fracture or spondylolisthesis. There is mild rightward curvature of the lumbar spine and mild spondylitic changes in the lower lumbar spine. Patient's history is consistent with lumbar muscle strain. Recommended ibuprofen, acetaminophen, ice and heat therapy, gentle movement, avoiding bed rest. She was prescribed methocarbamol and Lidoderm, discussed risks of muscle relaxers. She is feeling better and happy with this plan. Provided with light duty note for work. Discussed strict ED return precautions follow up with PCP. Patient and her verbalized understanding of all information agreeable to plan, she is ambulatory and stable for discharge home, VS WNL. Discharge Plan Departure Patient Disposition: Home Clinical Impression: Strain of lumbar region Qualifiers: Encounter type: initial encounter Qualified Code(s): S39.012A - Strain of muscle, fascia and tendon of lower back, initial encounter Activity Restrictions/Additional Instructions: Dear Ms. Mendez, Thank you for coming to the emergency department. Today you were evaluated for left-sided low back pain. Your x-ray does reveal some degenerative changes and I suspect her symptoms are also due to a muscle strain. Please rest, avoid heavy lifting or bending or any exacerbating movements, but also avoid bed rest. Walking and gentle movement is good. You may use both heat and ice to help with your symptoms in addition to ibuprofen and Tylenol and the prescribed muscle relaxer and numbing patches. Please take Ibuprofen (Motrin/Advil) or Acetaminophen (Tylenol) for pain. These are available over the counter. You may take Ibuprofen 600 mg every 8 hours with food for pain. You may also take Acetaminophen 650 mg every 4-6 hours for pain. Do not exceed 3000 mg of Tylenol a day as this can cause liver damage. Do not drink alcohol with either of these medications. Please return to the emergency department if you develop inability to walk, fevers, inability to use the bathroom, weakness of the leg or any other concerning symptoms. Please be aware that muscle relaxers (methocarbamol/Robaxin) can make you drowsy so he should avoid drinking alcohol with the medication, operating heavy machinery, working driving or signing legal documentation. Please follow up with your primary care doctor within the next 2-3 days for ER follow-up. (If you do not have a PCP you can call [phone]. ?to schedule an appointment with an [facility] Primary Care Provider) IF YOU DEVELOP ANY NEW OR WORSENING SYMPTOMS, RETURN TO THE ER! Please read the attached instructions, they highlight more specific treatments and interventions for you at home. Thank you for letting me participate in your care, Kemi Duran PA-C Prescriptions: New methocarbamol 500 mg tablet 500 mg PO TID Qty: 20 0RF Rx Instructions: can take 2 tabs (1,000mg) at bedtime lidocaine [Lidoderm] 5 % adhesive patch,medicated 1 patch topical DAILY Qty: 30 0RF Rx Instructions: leave on most painful area for up to 12 hrs No Action fluticasone propionate [Flonase Allergy Relief] 50 mcg/actuation spray,suspension 1 spray intranasal Q12H Qty: 16 0RF Rx Instructions: administer into each nostril benzonatate 200 mg capsule 200 mg PO BID PRN (Reason: cough) Qty: 28 0RF albuterol sulfate 90 mcg/actuation HFA aerosol inhaler 2 puff inhalation Q6H PRN (Reason: shortness of breath or wheezing) Qty: 6.7 0RF lorazepam [Ativan] 1 mg tablet See Rx Instructions .ROUTE .COMPLEX Qty: 19 0RF Rx Instructions: Day 1: 2mg PO q6 Day 2: 2mg PO q8 Day 3: 2mg PO q12 Day 4: 1mg PO qhs #19 ondansetron 4 mg tablet,disintegrating 4 mg PO Q6H PRN (Reason: nausea and vomiting) Qty: 10 0RF Stand Alone Forms: Patient Portal/API, Work Release Note ED Sign-out <Arnie Berry MD - Last Filed: 11/04/24 19:14> Cosign ED Attending Cosignature Attestation: I was immediately available in the department for consultation. ?This documentation has been reviewed and I agree with assessment and plan. Supervised by Arnie Berry MD
[2024-11-04 13:00] VITALS: BP 126/62; PULSE 56; RESP 16; TEMP 37.1; O2SAT 98
== END 2024-11-04 13:21 | disposition home or self-care (01) ==
PROVIDERS: Emergency Provider Physician Assistant
DX: S39.012A Strain of muscle, fascia and tendon of lower back, initial encounter (principal); X58.XXXA Exposure to other specified factors, initial encounter; Z87.891 Personal history of nicotine dependence
CPT/HCPCS: 72100; 99283